=== PATIENT | female | born 1960 ===

== ENCOUNTER 2018-12-01 18:54 | Inpatient (IN) | payer BC ==
[2018-12-01] MEDS ORDERED: Sodium Chloride 0.9% 1,000 ML IV STA (19:32)
[2018-12-01] MEDS ORDERED: Ondansetron 4 MG/2 ML SDV IVPUSH ONE (19:32)
[2018-12-01] MEDS ORDERED: Sodium Chloride 0.9% 10 ML Syringe FLUSH PRN (19:32)
[2018-12-01] MEDS ORDERED: HYDROmorphone 1 MG/ML Syringe IVPUSH ONE ×2 (19:33→21:19)
[2018-12-01] MEDS ORDERED: Iopamidol 612 MG/ML 100 ML Bottle IVPUSH ONE (20:17)
--- NOTE | 2018-12-01 20:48 | EDM.PDOC ---
ED HPI GENERAL MEDICAL PROBLEM - General Chief Complaint: Abdominal Pain Stated Complaint: ABDOMINAL PAIN Time Seen by Provider: 12/01/18 19:07 Source of Information: Reports: Patient, Family History Limitations: Reports: Intoxication - History of Present Illness INITIAL COMMENTS - FREE TEXT/NARRATIVE: The patient presents with her for abdominal pain, nausea and vomiting. This started a few days ago. It got worse today. She has been on klonazopam for years and her doctor Dr Correa is trying to get her off. She has been out for a few days. She also had gastric bypass surgery in the past. She has been drinking more alcohol the past 2 weeks because she is not on the klonazopam. She last drank about an hour before arrival. She has no fever, chills, cough, congestion, chest pain or shortness of breath. Onset: Gradual Duration: Day(s): Location: Reports: Abdomen Quality: Reports: Sharp Severity: Moderate Improves with: Reports: None Worsens with: Reports: None Associated Symptoms: Reports: Nausea/Vomiting. Denies: Chest Pain, Cough, Fever /Chills, Headaches, Shortness of Breath Abdomen Pain Score (Numeric/FACES): 8 - Related Data Allergies Allergy/AdvReac Type Severity Reaction Status Date / Time Sulfa (Sulfonamide Allergy Nausea and Verified 12/01/18 19:34 Antibiotics) Vomiting topiramate [From Topamax] Allergy Other Verified 12/01/18 19:34 Home Meds: Home Meds clonazePAM [Clonazepam] 1.5 mg PO BEDTIME 06/13/18 [History] Past Medical History - Past Health History Medical/Surgical History: Denies Medical/Surgical History Gastrointestinal History: Reports: GERD, Other (See Below) Other Gastrointestinal History: ulcers, bowel obstruction Neurological History: Reports: Migraines - Past Surgical History GI Surgical History: Reports: Bariatric Procedure, Cholecystectomy, Small Bowel , Other (See Below) Other GI Surgeries/Procedures: small bowel resection Female Surgical History: Reports: Hysterectomy Social & Family History - Tobacco Use Smoking Status *Q: Current Every Day Smoker Years of Tobacco use: 35 Packs/Tins Daily: 1 - Caffeine Use Caffeine Use: Reports: None ED ROS GENERAL - Review of Systems Review Of Systems: See Below Constitutional: Reports: No Symptoms HEENT: Reports: No Symptoms Respiratory: Reports: No Symptoms Cardiovascular: Reports: No Symptoms Endocrine: Reports: No Symptoms GI/Abdominal: Reports: Abdominal Pain, Nausea, Vomiting. Denies: Diarrhea : Reports: No Symptoms Musculoskeletal: Reports: No Symptoms Skin: Reports: No Symptoms ED EXAM, GI/ABD - Physical Exam Exam: See Below Exam Limited By: No Limitations General Appearance: Alert, No Apparent Distress Ears: Normal External Exam Nose: Normal Inspection Head: Atraumatic, Normocephalic Neck: Normal Inspection Respiratory/Chest: No Respiratory Distress, Lungs Clear, Normal Breath Sounds Cardiovascular: Regular Rate, Rhythm, No Edema, No Murmur GI/Abdominal Exam: Soft, No Organomegaly, No Mass, Tender (Moderate mid abdominal tenderness) Course - Vital Signs Last Recorded V/S: Last Vital Signs Temp 97.6 F 12/01/18 19:25 Pulse 97 12/01/18 19:25 Resp 16 12/01/18 19:25 BP 155/98 H 12/01/18 19:25 Pulse Ox 98 12/01/18 19:25 - Orders/Labs/Meds Orders: Active Orders 24 hr Category Date Time Status Peripheral IV Care [RC] . DIRECTED Care 12/01/18 19:32 Active Abdomen Pelvis w Cont [CT] Stat Exams 12/01/18 19:32 Taken Sodium Chloride 0.9% [Normal Saline] 1,000 ml Med 12/01/18 21:30 Active IV ASDIRECTED Sodium Chloride 0.9% [Saline Flush] Med 12/01/18 19:32 Active 10 ml FLUSH ASDIRECTED PRN ED Antiemetic Medication Reflex [OM.PC] Stat Oth 12/01/18 19:32 Ordered Peripheral IV Insertion Adult [OM.PC] Stat Oth 12/01/18 19:32 Ordered Medication Orders Sodium Chloride (Normal Saline) 1,000 mls @ 150 mls/hr IV ASDIRECTED YANELY Last Admin: 12/01/18 21:35 Dose: 150 mls/hr Sodium Chloride (Saline Flush) 10 ml FLUSH ASDIRECTED PRN PRN Reason: Keep Vein Open Last Admin: 12/01/18 19:54 Dose: 10 ml Labs: Laboratory Tests 12/01/18 12/01/18 12/01/18 Range/Units 19:20 19:20 19:54 WBC 3.48 L (3.98-10.04) K/mm3 RBC 4.30 (3.98-5.22) M/mm3 Hgb 13.0 (11.2-15.7) gm/L Hct 38.1 (34.1-44.9) % MCV 88.6 (79.4-94.8) fl MCH 30.2 (25.6-32.2) pg MCHC 34.1 (32.2-35.5) g/dl RDW Std Deviation 49.2 H (36.4-46.3) fL Plt Count 302 (182-369) K/mm3 MPV 8.6 L (9.4-12.3) fl Neut % (Auto) 68.9 (34.0-71.1) % Lymph % (Auto) 21.3 (19.3-51.7) % [place] % (Auto) 8.9 (4.7-12.5) % Eos % (Auto) 0.3 L (0.7-5.8) Baso % (Auto) 0.3 (0.1-1.2) % Neut # (Auto) 2.40 (1.56-6.13) K/mm3 Lymph # (Auto) 0.74 L (1.18-3.74) K/mm3 Dent # (Auto) 0.31 (0.24-0.36) K/mm3 Eos # (Auto) 0.01 L (0.04-0.36) K/mm3 Baso # (Auto) 0.01 (0.01-0.08) K/mm3 Sodium 134 L (136-145) mEq/L Potassium 3.8 (3.5-5.1) mEq/L Chloride 100 (98-107) mEq/L Carbon Dioxide 22 (21-32) mEq/L Anion Gap 15.8 H (5-15) BUN 14 (7-18) mg/dL Creatinine 0.8 (0.55-1.02) mg/dL Est Cr Clr Drug Dosing TNP Estimated GFR (MDRD) > 60 (>60) mL/min BUN/Creatinine Ratio 17.5 (14-18) Glucose 134 H (74-106) mg/dL Calcium 8.9 (8.5-10.1) mg/dL Total Bilirubin 0.4 (0.2-1.0) mg/dL AST 214 H (15-37) U/L ALT 91 H (14-59) U/L Alkaline Phosphatase 136 H (46-116) U/L Total Protein 7.2 (6.4-8.2) g/dl Albumin 3.6 (3.4-5.0) g/dl Globulin 3.6 gm/dL Albumin/Globulin Ratio 1.0 (1-2) Lipase 736 H (73-393) U/L Urine Color Yellow (Yellow) Urine Appearance Clear (Clear) Urine pH 5.5 (5.0-8.0) Ur Specific [place] 1.015 (1.005-1.030) Urine Protein Negative (Negative) Urine Glucose (UA) Negative (Negative) Urine Ketones Negative (Negative) Urine Occult Blood Negative (Negative) Urine Nitrite Negative (Negative) Urine Bilirubin Negative (Negative) Urine Urobilinogen 0.2 (0.2-1.0) Ur Leukocyte Esterase Negative (Negative) Urine RBC 0-5 (0-5) /hpf Urine WBC 0-5 (0-5) /hpf Ur Epithelial Cells 0-5 (0-5) /hpf Urine Bacteria Not seen (FEW) /hpf Urine Mucus Not seen (FEW) /hpf Urine Opiates Screen (XAMKPU=077) Ur Buprenorphine Scrn (CUTOFF=10) Ur Oxycodone Screen (LSY9MY=622) Urine Methadone Screen (YEFRRO=582) Ur Propoxyphene Screen (BJLCOS=934) Ur Barbiturates Screen (IWMBJQ=333) Ur Tricyclics Screen (FBEJCR=572) Ur Phencyclidine Scrn (CUTOFF=25) Ur Amphetamine Screen (JJOHBY=571) U Methamphetamines Scrn (RCRLDJ=346) U Benzodiazepines Scrn (IXMMON=030) U Cocaine Metab Screen (ZUVVOE=523) U Marijuana (THC) Screen (CUTOFF=50) Ethyl Alcohol 0.15 (0.00) gm% 12/01/18 Range/Units 19:54 WBC (3.98-10.04) K/mm3 RBC (3.98-5.22) M/mm3 Hgb (11.2-15.7) gm/L Hct (34.1-44.9) % MCV (79.4-94.8) fl MCH (25.6-32.2) pg MCHC (32.2-35.5) g/dl RDW Std Deviation (36.4-46.3) fL Plt Count (182-369) K/mm3 MPV (9.4-12.3) fl Neut % (Auto) (34.0-71.1) % Lymph % (Auto) (19.3-51.7) % Dent % (Auto) (4.7-12.5) % Eos % (Auto) (0.7-5.8) Baso % (Auto) (0.1-1.2) % Neut # (Auto) (1.56-6.13) K/mm3 Lymph # (Auto) (1.18-3.74) K/mm3 Dent # (Auto) (0.24-0.36) K/mm3 Eos # (Auto) (0.04-0.36) K/mm3 Baso # (Auto) (0.01-0.08) K/mm3 Sodium (136-145) mEq/L Potassium (3.5-5.1) mEq/L Chloride (98-107) mEq/L Carbon Dioxide (21-32) mEq/L Anion Gap (5-15) BUN (7-18) mg/dL Creatinine (0.55-1.02) mg/dL Est Cr Clr Drug Dosing Estimated GFR (MDRD) (>60) mL/min BUN/Creatinine Ratio (14-18) Glucose (74-106) mg/dL Calcium (8.5-10.1) mg/dL Total Bilirubin (0.2-1.0) mg/dL AST (15-37) U/L ALT (14-59) U/L Alkaline Phosphatase (46-116) U/L Total Protein (6.4-8.2) g/dl Albumin (3.4-5.0) g/dl Globulin gm/dL Albumin/Globulin Ratio (1-2) Lipase (73-393) U/L Urine Color (Yellow) Urine Appearance (Clear) Urine pH (5.0-8.0) Ur Specific [place] (1.005-1.030) Urine Protein (Negative) Urine Glucose (UA) (Negative) Urine Ketones (Negative) Urine Occult Blood (Negative) Urine Nitrite (Negative) Urine Bilirubin (Negative) Urine Urobilinogen (0.2-1.0) Ur Leukocyte Esterase (Negative) Urine RBC (0-5) /hpf Urine WBC (0-5) /hpf Ur Epithelial Cells (0-5) /hpf Urine Bacteria (FEW) /hpf Urine Mucus (FEW) /hpf Urine Opiates Screen Negative (DTYECQ=682) Ur Buprenorphine Scrn Negative (CUTOFF=10) Ur Oxycodone Screen Negative (MMJ2ZW=687) Urine Methadone Screen Negative (LHSYWQ=858) Ur Propoxyphene Screen Negative (SXSWTB=164) Ur Barbiturates Screen Negative (VDTFWP=384) Ur Tricyclics Screen Negative (CIQITV=378) Ur Phencyclidine Scrn Negative (CUTOFF=25) Ur Amphetamine Screen Negative (MHUQLW=379) U Methamphetamines Scrn Negative (IXCHYG=027) U Benzodiazepines Scrn Negative (VUTISB=405) U Cocaine Metab Screen Negative (CEWDHN=622) U Marijuana (THC) Screen Negative (CUTOFF=50) Ethyl Alcohol (0.00) gm% Meds: Medications Generic Name Dose Route Start Last Admin Trade Name Freq PRN Reason Stop Dose Admin Sodium Chloride 1,000 mls @ 150 mls/hr 12/01/18 21:30 12/01/18 21:35 Normal Saline IV 150 mls/hr ASDIRECTED YANELY Administration Sodium Chloride 10 ml 12/01/18 19:32 12/01/18 19:54 Saline Flush FLUSH 10 ml ASDIRECTED PRN Administration Keep Vein Open Discontinued Medications Generic Name Dose Route Start Last Admin Trade Name Freq PRN Reason Stop Dose Admin Hydromorphone HCl 0.25 mg 12/01/18 19:33 12/01/18 19:53 Dilaudid IVPUSH 12/01/18 19:34 0.25 mg ONETIME ONE Administration Hydromorphone HCl 0.5 mg 12/01/18 21:19 12/01/18 21:34 Dilaudid IVPUSH 12/01/18 21:20 0.5 mg ONETIME ONE Administration Sodium Chloride 1,000 mls @ 1,000 mls/hr 12/01/18 19:32 12/01/18 19:53 Normal Saline IV 12/01/18 20:31 1,000 mls/hr .BOLUS STA Administration Iopamidol 100 ml 12/01/18 20:17 12/01/18 20:24 Isovue-300 (61%) IVPUSH 12/01/18 20:18 100 ml ONETIME ONE Administration Ondansetron HCl 4 mg 12/01/18 19:32 12/01/18 19:54 Zofran IVPUSH 12/01/18 19:33 4 mg ONETIME ONE Administration - Re-Assessments/Exams Free Text/Narrative Re-Assessment/Exam: 12/01/18 20:45 I ordered an IV NS 1L bolus, zofran 4mg IV, dilaudid 0.25mg IV, labs, UA and a CT of her abdomen and pelvis. Her WBC was a little low at 3.48. Her Na was a little low at 134. Her anion gap was elevated at 15.8. Her glucose was elevated at 134. Her AST is elevated at 214. Her ALT was elevated at 91. Her Alk Phos was elevated at 136. Her UA looks good. Her urine drug screen was negative. Her ETOH was elevated at 0.15. I am waiting for her CT. 12/01/18 21:[address] shows edema concentrated around the pancreatic head, the second portion of the duodenum and tucker hepatis region. Considerations would be pancreatic head pancreatitis, duodenitis and or cholangitis Correlate with laboratory values. Her lipase is elevated consistent with pancreatitis and the patient has been drinking heavy the past 2 weeks to compensate for the lack of klonopin. I went to talk to her and she was still having more pain. I gave her more dilaudid and fluids. I feel she may not do well at home. Her and her feel the same. I called Dr Chavez and she agreed to the admission. Departure - Departure Time of Disposition: 21:45 Disposition: Admitted As Inpatient 67 Condition: Poor Clinical Impression: Elevated liver enzymes Pancreatitis Qualifiers: Chronicity: acute Pancreatitis type: alcohol induced Acute pancreatitis complication: no infection or necrosis Qualified Code(s): K85.20 - Alcohol induced acute pancreatitis without necrosis or infection Alcohol intoxication Qualifiers: Complication of substance-induced condition: uncomplicated Qualified Code(s): F10.920 - Alcohol use, unspecified with intoxication, uncomplicated - Discharge Information Referrals: Fawad Palma PA-C [Primary Care Provider] - Forms: ED Department Discharge - My Orders Last 24 Hours: My Active Orders 12/01/18 19:32 Peripheral IV Care [RC] . DIRECTED Abdomen Pelvis w Cont [CT] Stat Sodium Chloride 0.9% [Saline Flush] 10 ml FLUSH ASDIRECTED PRN ED Antiemetic Medication Reflex [OM.PC] Stat Peripheral IV Insertion Adult [OM.PC] Stat 12/01/18 21:30 Sodium Chloride 0.9% [Normal Saline] 1,000 ml IV ASDIRECTED - Assessment/Plan Last 24 Hours: My Active Orders 12/01/18 19:32 Peripheral IV Care [RC] . DIRECTED Abdomen Pelvis w Cont [CT] Stat Sodium Chloride 0.9% [Saline Flush] 10 ml FLUSH ASDIRECTED PRN ED Antiemetic Medication Reflex [OM.PC] Stat Peripheral IV Insertion Adult [OM.PC] Stat 12/01/18 21:30 Sodium Chloride 0.9% [Normal Saline] 1,000 ml IV ASDIRECTED
[2018-12-01] MEDS ORDERED: Sodium Chloride 0.9% 1,000 ML IV SCH ×2 (21:30→22:30)
[2018-12-01] MEDS ORDERED: LORazepam 2 MG/ML SDV IVPUSH PRN (22:16)
[2018-12-01] MEDS ORDERED: Ondansetron 4 MG/2 ML SDV IVPUSH PRN (22:25)
[2018-12-01] MEDS ORDERED: chlordiazePOXIDE 25 MG Cap PO ONE (22:30)
[2018-12-01] MEDS: HYDROmorphone 1 MG/ML Syringe IVPUSH PRN (23:00)
[2018-12-02] MEDS ORDERED: Ondansetron 4 MG/2 ML SDV IVPUSH PRN (00:47)
[2018-12-02] MEDS: HYDROmorphone 1 MG/ML Syringe IVPUSH PRN ×4 (03:49→18:10)
--- NOTE | 2018-12-02 06:20 | CT ---
CT abdomen and pelvis Technique: Multiple axial sections were obtained from above the dome of the diaphragm inferiorly through the pubic symphysis. Intravenous and oral contrast was utilized. Delayed images were obtained through the bladder. Comparison: Previous abdominal and pelvic CT study of 05/31/12. Findings: Small portion of the visualized lung bases show nothing acute. Liver contains no focal abnormality. Spleen appears within normal limits. Small nodule noted within the left adrenal gland measuring approximately 1.9 cm. This nodule is present on previous CT exam. This also appears low in signal on prior MRI study of 09/18/14 on the out of phase image which is felt compatible with incidental adrenal adenoma. Right adrenal gland is unremarkable. Bowel wall thickening is noted within portions of the stomach and duodenum. Previous surgery is noted within the stomach. Inflammatory change and fluid is seen around the head of the pancreas and duodenum with fluid extending into the right renal fascia. Pancreas is otherwise unremarkable. Aorta shows no aneurysm. Gallbladder not seen with certainty. Aorta shows no aneurysm. No retroperitoneal adenopathy or mesenteric abnormalities are seen. No pelvic mass or adenopathy is seen. Delayed images show contrast within the bladder. Bone window settings were reviewed which appear within normal limits for the patient's age. Impression: 1. Inflammatory change and fluid around the head of the pancreas and duodenum extending into the right pararenal fascia. Wall thickening is seen within the stomach and duodenum. Findings most likely represent change from duodenitis although pancreatitis is also within the differential. 2. Nonvisualized gallbladder most likely due to previous cholecystectomy. Please confirm clinically. 3. Other incidental findings as noted above. Diagnostic code #3 Agree with preliminary report issued by [employer] ([facility] preliminary report dictated on 12/01/18, 9:44 PM Central Time) code 2
--- NOTE | 2018-12-02 06:30 | PCM.HP ---
H&P History of Present Illness - General Date of Service: 12/02/18 Admit Problem/Dx: Admission Diagnosis/Problem Admission Diagnosis/Problem Pancreatitis Source of Information: Patient, Old Records, Provider, RN, RN Notes Reviewed History Limitations: Reports: No Limitations - History of Present Illness Initial Comments - Free Text/Narative: Britt Mi is a 58 yo female who presented to our ED yesterday evening with abdominal pain, nausea, and vomiting which has been ongoing for the past few days and is getting worse. She has reportedly been on clonazepam for many years and Dr. Correa is trying to wean her off of it. She has not had any for several days as she is out of it. Due to this she has been drinking more and more alcohol over the past 2 weeks. She reports she was last drinking about a hour prior to ED arrival. She has a history of gastric bypass surgery. She is accompanied by her . She denies any fever, chills, cough, congestion, chest pain, or shortness of breath initially. In the ED temperature is 97.6. Pulse 97. Respirations 16. Blood pressure 155/ 98. Pulse ox 98%. She does complain of some moderate mid abdominal tenderness. Labs are obtained: WBC is low at 3.48. Hemogram 13.0. Hematocrit 30.1. She was normocytic. Postsurgical 302,000. Neutrophils are normal at 68.9. Sodium is 134. Potassium 3.8. Chloride 100. Her monoxide 22. Anion gap was slightly high at 15.8. BUN is 14. Creatinine 0.8. EGFR is greater than 60. Glucose is 134. Bilirubin 0.4. AST is elevated at 214, ALT 91, alkaline phosphatase 136. Protein 7.2. Albumin 3.6. Lipase is high at 736. UA is grossly negative. Urine drug screen is negative. Ethyl Alcohol is 0.15. She was started on normal saline and given Dilaudid for pain as well as Zofran for nausea. CT scan of her elbow in the pelvis with contrast was obtained and interpreted by Dr. Peterson as "1. Inflammatory change of fluid around the head of the pancreas and duodenum extending into the right pararenal fascia. Wall thickening seen within the stomach and duodenum. Findings most likely represent change from duodenitis although pancreatitis is also within the differential. 2. Nonvisualized gallbladder most likely due to previous cholecystectomy. Please confirm clinically. Other incidental findings as noted above. She does report some chest pressure while in the ED to the ED provider. EKG is obtained showing no acute changes and a troponin is ordered and is negative. She carries a history of GERD, ulcers, bowel obstruction, migraines, bariatric procedure, cholecystectomy, small bowel resection, hysterectomy. She is a current daily smoker. Her PCP is Faawd Palma PA-C. She is subsequently admitted to the hospital floor on telemetry. Abdomen Pain Score (Numeric/FACES): 5 - Related Data Allergies/Adverse Reactions: Allergies Allergy/AdvReac Type Severity Reaction Status Date / Time Sulfa (Sulfonamide AdvReac Nausea and Verified 12/02/18 07:11 Antibiotics) Vomiting topiramate [From Topamax] AdvReac Other Verified 12/02/18 07:11 Home Medications: Home Meds clonazePAM [Clonazepam] 1 mg PO BEDTIME 06/13/18 [History] Omeprazole 20 mg PO DAILY 12/02/18 [History] hydrOXYzine pamoate [Hydroxyzine Pamoate] 150 mg PO BEDTIME 12/02/18 [History] Past Medical History - Past Health History Medical/Surgical History: Denies Medical/Surgical History Gastrointestinal History: Reports: Other (See Below) Other Gastrointestinal History: ulcers, bowel obstruction Neurological History: Reports: Migraines Hematologic History: Reports: Anemia Other Hematologic History: Iron infusions - Infectious Disease History Infectious Disease History: Reports: Chicken Pox - Past Surgical History GI Surgical History: Reports: Bariatric Procedure, Cholecystectomy, Hernia, Abdominal, Small Bowel, Other (See Below) Other GI Surgeries/Procedures: small bowel resection, hernia repair Female Surgical History: Reports: Hysterectomy Neurological Surgical History: Reports: Other (See Below) Other Neurological Surgeries/Procedures: Laser surgery Social & Family History - Family History Family Medical History: Noncontributory - Tobacco Use Smoking Status *Q: Current Every Day Smoker Years of Tobacco use: 40 Packs/Tins Daily: 0.5 Second Hand Smoke Exposure: No - Caffeine Use Caffeine Use: Reports: Coffee, Energy Drinks, Soda - Alcohol Use Days Per Week of Alcohol Use: 7 Number of Drinks Per Day: 30 Total Drinks Per Week: 210 Date of Last Drink: 11/30/18 Time of Last Drink: 18:30 - Recreational Drug Use Recreational Drug Use: Yes Drug Use in Last 12 Months: Yes Recreational Drug Type: Reports: Marijuana/Hashish Recreational Drug Use Frequency: Rarely Recreational Drug Last Use: 5 days ago H&P Review of Systems - Review of Systems: Review Of Systems: See Below General: Reports: No Symptoms. Denies: Fever, Chills, Malaise, Weakness, Fatigue HEENT: Reports: No Symptoms. Denies: Headaches, Sore Throat Pulmonary: Reports: No Symptoms. Denies: Shortness of Breath, Wheezing, Pleuritic Chest Pain, Cough, Sputum Cardiovascular: Reports: No Symptoms. Denies: Chest Pain, Palpitations, Dyspnea on Exertion, Edema, Lightheadedness Gastrointestinal: Reports: Abdominal Pain (RUQ>epigastric=LUQ), Diarrhea, Nausea , Vomiting. Denies: Constipation Genitourinary: Reports: No Symptoms. Denies: Pain Musculoskeletal: Reports: No Symptoms Skin: Reports: No Symptoms. Denies: Cyanosis Psychiatric: Reports: No Symptoms. Denies: Confusion Neurological: Reports: No Symptoms Hematologic/Lymphatic: Reports: No Symptoms Immunologic: Reports: No Symptoms Exam - Exam Exam: See Below - Vital Signs Vital Signs: Last Vital Signs Temp 98.2 F 12/02/18 03:50 Pulse 79 12/02/18 03:50 Resp 20 12/02/18 03:50 BP 152/86 H 12/02/18 03:50 Pulse Ox 98 12/02/18 03:50 Weight: 152 lb 3.2 oz - Exam Quality Assessment: DVT Prophylaxis General: Alert, Oriented, Cooperative. No: Mild Distress HEENT: Conjunctiva Clear, EACs Clear, EOMI, Hearing Intact, Mucosa Moist & [place] , Nares Patent, Posterior Pharynx Clear, PERRLA Neck: Supple, Trachea Midline Lungs: Clear to Auscultation, Normal Respiratory Effort Cardiovascular: Regular Rate, Regular Rhythm GI/Abdominal Exam: Normal Bowel Sounds, Soft, No Distention, No Abnormal Bruit, Tender (RUQ>epigastric=LUQ), Other (wound below umbilicus 2/2 prior abdominal surgeries. Non-draining and patient reports no changes to it. ) (Female) Exam: Deferred Rectal (Female) Exam: Deferred Back Exam: Normal Inspection, Full Range of Motion Extremities: Normal Inspection, Normal Range of Motion, Non-Tender, No Pedal Edema, Normal Capillary Refill Peripheral Pulses: 3+: Radial (L), Radial (R), Dorsalis Pedis (L), Dorsalis Pedis (R) Skin: Warm, Dry, Intact Neurological: Cranial Nerves Intact (grossly ) Neuro Extensive - Mental Status: Alert, Oriented x3, Normal Mood/Affect, Normal Cognition - Patient Data Lab Results Last 24 hrs: Laboratory Results - last 24 hr 12/01/18 12/01/18 12/01/18 Range/Units 19:20 19:20 19:54 WBC 3.48 L (3.98-10.04) K/mm3 RBC 4.30 (3.98-5.22) M/mm3 Hgb 13.0 (11.2-15.7) gm/L Hct 38.1 (34.1-44.9) % MCV 88.6 (79.4-94.8) fl MCH 30.2 (25.6-32.2) pg MCHC 34.1 (32.2-35.5) g/dl RDW Std Deviation 49.2 H (36.4-46.3) fL Plt Count 302 (182-369) K/mm3 MPV 8.6 L (9.4-12.3) fl Neut % (Auto) 68.9 (34.0-71.1) % Lymph % (Auto) 21.3 (19.3-51.7) % [place] % (Auto) 8.9 (4.7-12.5) % Eos % (Auto) 0.3 L (0.7-5.8) Baso % (Auto) 0.3 (0.1-1.2) % Neut # (Auto) 2.40 (1.56-6.13) K/mm3 Lymph # (Auto) 0.74 L (1.18-3.74) K/mm3 [place] # (Auto) 0.31 (0.24-0.36) K/mm3 Eos # (Auto) 0.01 L (0.04-0.36) K/mm3 Baso # (Auto) 0.01 (0.01-0.08) K/mm3 Sodium 134 L (136-145) mEq/L Potassium 3.8 (3.5-5.1) mEq/L Chloride 100 (98-107) mEq/L Carbon Dioxide 22 (21-32) mEq/L Anion Gap 15.8 H (5-15) BUN 14 (7-18) mg/dL Creatinine 0.8 (0.55-1.02) mg/dL Est Cr Clr Drug Dosing TNP Estimated GFR (MDRD) > 60 (>60) mL/min BUN/Creatinine Ratio 17.5 (14-18) Glucose 134 H (74-106) mg/dL Calcium 8.9 (8.5-10.1) mg/dL Total Bilirubin 0.4 (0.2-1.0) mg/dL AST 214 H (15-37) U/L ALT 91 H (14-59) U/L Alkaline Phosphatase 136 H (46-116) U/L Troponin I (0.00-0.056) ng/mL Total Protein 7.2 (6.4-8.2) g/dl Albumin 3.6 (3.4-5.0) g/dl Globulin 3.6 gm/dL Albumin/Globulin Ratio 1.0 (1-2) Lipase 736 H (73-393) U/L Urine Color Yellow (Yellow) Urine Appearance Clear (Clear) Urine pH 5.5 (5.0-8.0) Ur Specific [place] 1.015 (1.005-1.030) Urine Protein Negative (Negative) Urine Glucose (UA) Negative (Negative) Urine Ketones Negative (Negative) Urine Occult Blood Negative (Negative) Urine Nitrite Negative (Negative) Urine Bilirubin Negative (Negative) Urine Urobilinogen 0.2 (0.2-1.0) Ur Leukocyte Esterase Negative (Negative) Urine RBC 0-5 (0-5) /hpf Urine WBC 0-5 (0-5) /hpf Ur Epithelial Cells 0-5 (0-5) /hpf Urine Bacteria Not seen (FEW) /hpf Urine Mucus Not seen (FEW) /hpf Urine Opiates Screen (SJYUHT=989) Ur Buprenorphine Scrn (CUTOFF=10) Ur Oxycodone Screen (RIW3CQ=882) Urine Methadone Screen (KHHJHO=144) Ur Propoxyphene Screen (EGXQBS=369) Ur Barbiturates Screen (FXHGUM=493) Ur Tricyclics Screen (FNRVFC=493) Ur Phencyclidine Scrn (CUTOFF=25) Ur Amphetamine Screen (YYNJYX=335) U Methamphetamines Scrn (IESEVS=087) U Benzodiazepines Scrn (BYKQOK=369) U Cocaine Metab Screen (UHVYDF=532) U Marijuana (THC) Screen (CUTOFF=50) Ethyl Alcohol 0.15 (0.00) gm% 12/01/18 12/01/18 Range/Units 19:54 22:05 WBC (3.98-10.04) K/mm3 RBC (3.98-5.22) M/mm3 Hgb (11.2-15.7) gm/L Hct (34.1-44.9) % MCV (79.4-94.8) fl MCH (25.6-32.2) pg MCHC (32.2-35.5) g/dl RDW Std Deviation (36.4-46.3) fL Plt Count (182-369) K/mm3 MPV (9.4-12.3) fl Neut % (Auto) (34.0-71.1) % Lymph % (Auto) (19.3-51.7) % [place] % (Auto) (4.7-12.5) % Eos % (Auto) (0.7-5.8) Baso % (Auto) (0.1-1.2) % Neut # (Auto) (1.56-6.13) K/mm3 Lymph # (Auto) (1.18-3.74) K/mm3 [place] # (Auto) (0.24-0.36) K/mm3 Eos # (Auto) (0.04-0.36) K/mm3 Baso # (Auto) (0.01-0.08) K/mm3 Sodium (136-145) mEq/L Potassium (3.5-5.1) mEq/L Chloride (98-107) mEq/L Carbon Dioxide (21-32) mEq/L Anion Gap (5-15) BUN (7-18) mg/dL Creatinine (0.55-1.02) mg/dL Est Cr Clr Drug Dosing Estimated GFR (MDRD) (>60) mL/min BUN/Creatinine Ratio (14-18) Glucose (74-106) mg/dL Calcium (8.5-10.1) mg/dL Total Bilirubin (0.2-1.0) mg/dL AST (15-37) U/L ALT (14-59) U/L Alkaline Phosphatase (46-116) U/L Troponin I < 0.017 (0.00-0.056) ng/mL Total Protein (6.4-8.2) g/dl Albumin (3.4-5.0) g/dl Globulin gm/dL Albumin/Globulin Ratio (1-2) Lipase (73-393) U/L Urine Color (Yellow) Urine Appearance (Clear) Urine pH (5.0-8.0) Ur Specific [place] (1.005-1.030) Urine Protein (Negative) Urine Glucose (UA) (Negative) Urine Ketones (Negative) Urine Occult Blood (Negative) Urine Nitrite (Negative) Urine Bilirubin (Negative) Urine Urobilinogen (0.2-1.0) Ur Leukocyte Esterase (Negative) Urine RBC (0-5) /hpf Urine WBC (0-5) /hpf Ur Epithelial Cells (0-5) /hpf Urine Bacteria (FEW) /hpf Urine Mucus (FEW) /hpf Urine Opiates Screen Negative (LTOOHF=213) Ur Buprenorphine Scrn Negative (CUTOFF=10) Ur Oxycodone Screen Negative (XHQ9ID=045) Urine Methadone Screen Negative (XNZLWR=254) Ur Propoxyphene Screen Negative (HRDOHC=985) Ur Barbiturates Screen Negative (REZSKX=425) Ur Tricyclics Screen Negative (BOZCNF=584) Ur Phencyclidine Scrn Negative (CUTOFF=25) Ur Amphetamine Screen Negative (FNMTCJ=269) U Methamphetamines Scrn Negative (AUUZVA=537) U Benzodiazepines Scrn Negative (EQVJGU=934) U Cocaine Metab Screen Negative (GPQBPT=919) U Marijuana (THC) Screen Negative (CUTOFF=50) Ethyl Alcohol (0.00) gm% Result Diagrams: 12/01/18 19:20 12/02/18 05:35 - Problem List (1) Pancreatitis SNOMED Code(s): 39193907 ICD Code: K85.90 - ACUTE PANCREATITIS WITHOUT NECROSIS OR INFECTION, UNSP Status: Acute Priority: High Current Visit: Yes Qualifiers: Chronicity: acute Pancreatitis type: alcohol induced Acute pancreatitis complication: no infection or necrosis Qualified Code(s): K85.20 - Alcohol induced acute pancreatitis without necrosis or infection (2) Alcohol intoxication SNOMED Code(s): 39181819 ICD Code: F10.929 - ALCOHOL USE, UNSPECIFIED WITH INTOXICATION, UNSPECIFIED Status: Acute Priority: High Current Visit: Yes Qualifiers: Complication of substance-induced condition: uncomplicated Qualified Code(s ): F10.920 - Alcohol use, unspecified with intoxication, uncomplicated (3) Elevated liver enzymes SNOMED Code(s): 576836416 ICD Code: R74.8 - ABNORMAL LEVELS OF OTHER SERUM ENZYMES Status: Acute Priority: High Current Visit: Yes (4) Tobacco use disorder SNOMED Code(s): 193209707 ICD Code: F17.200 - NICOTINE DEPENDENCE, UNSPECIFIED, UNCOMPLICATED Status : Chronic Priority: Medium Current Visit: Yes (5) Hypomagnesemia SNOMED Code(s): 363746359 ICD Code: E83.42 - HYPOMAGNESEMIA Status: Acute Priority: High Current Visit: Yes Problem List Initiated/Reviewed/Updated: Yes Orders Last 24hrs: Active Orders 24 hr Category Date Time Status Patient Status [ADT] Routine ADT 12/01/18 21:46 Active Bedrest Bathroom Privileges [RC] BID Care 12/02/18 00:48 Active CIWAA Assessment [RC] Q4HR Care 12/01/18 22:14 Active NPO [Nothing Per Oral Diet] [DIET] Diet 12/02/18 Breakfast Active BMP [BASIC METABOLIC PANEL,BMP] [CHEM] Routine Lab 12/02/18 05:35 Received MAGNESIUM [CHEM] Routine Lab 12/02/18 05:35 Received HYDROmorphone [Dilaudid] Med 12/01/18 22:23 Active 0.5 mg IVPUSH Q4H PRN LORazepam [Ativan] Med 12/01/18 22:16 Active 1 - 3 mg IVPUSH Q4H PRN Ondansetron [Zofran] Med 12/02/18 00:47 Active 4 mg IVPUSH Q6H PRN Sodium Chloride 0.9% [Normal Saline] 1,000 ml Med 12/01/18 22:30 Active IV ASDIRECTED Sodium Chloride 0.9% [Saline Flush] Med 12/01/18 19:32 Active 10 ml FLUSH ASDIRECTED PRN ED Antiemetic Medication Reflex [OM.PC] Stat Oth 12/01/18 19:32 Ordered Peripheral IV Insertion Adult [OM.PC] Stat Oth 12/01/18 19:32 Ordered Resuscitation Status Routine Resus Stat 12/02/18 00:47 Ordered EKG 12 Lead [EK] Routine Ther 12/01/18 21:55 Ordered Medication Orders Hydromorphone HCl (Dilaudid) 0.5 mg IVPUSH Q4H PRN PRN Reason: pain Last Admin: 12/02/18 03:49 Dose: 0.5 mg Admin: 12/01/18 23:00 Dose: 0.5 mg Sodium Chloride (Normal Saline) 1,000 mls @ 100 mls/hr IV ASDIRECTED YANELY Lorazepam (Ativan) 1 - 3 mg IVPUSH Q4H PRN; Protocol PRN Reason: Withdrawal Symptoms Ondansetron HCl (Zofran) 4 mg IVPUSH Q6H PRN PRN Reason: Nausea Sodium Chloride (Saline Flush) 10 ml FLUSH ASDIRECTED PRN PRN Reason: Keep Vein Open Last Admin: 12/01/18 19:54 Dose: 10 ml Assessment/Plan Comment:: I/P: Acute: Pancreatitis -Has reported worsening abdominal pain, nausea, and vomiting for several days -Hx/o cholecystectomy and gastric bypass -Abdominal/Pelvis CT 12/01/18: * 1. Inflammatory change and fluid around the head of the pancreas and duodenum extending into the right pararenal fascia. Wall thickening is seen within the stomach and duodenum. Findings most likely represent changes from duodenitis although pancreatitis is also within the differential. * 2. Nonvisualized gallbladder most likely due to previous cholecystectomy. Please confirm clinically. * 3. Other incidental findings as noted. -Lipase 736-->1001 -No leukocytosis or clinical signs of infectious process -CRP <0.2 -IV fluids as ordered -NPO for now -Abdominal ultrasound pending -Dr. Saunders, surgery consult ETOH abuse -Has reportedly been drinking heavy for past 2 weeks -Dr. Correa has been trying to wean her off clonazepam and she started drinking ETOH instead -Story on how much she drinks has changed multiple times -UDS negative in ED -Ethyl alochol 0.15 in ED -Multivitamin/Folic acid/Thiamine -Librium as ordered -Consult psychiatry and substance abuse counselor -OSCAR protocol -PRN Ativan for seizures Transaminitis -Suspect 2/2 above -AST 214 -ALT 91 -Alk Phos 136 -IV fluids as ordered -Monitor Tobacco use disorder -Reportedly vapes and smokes -Story has been changing on how much she actually consumes -Nicotine patch -Cessation counseling Hypomagnesemia -Magnesium 1.6 -Supplement Chronic: GERD - Pepcid ordered Hx/o bowel obstruction migraines Hx/o bariatric procedure Hx/o Cholecystectomy Hx/o Small bowel resection Plan: Admit to medical floor on telemetry Other orders as indicated above Home medications as ordered Routine AM labs DVT/PE prophylaxis: SCDs She is usually ambulatory so will hold off PT/OT for now Code status: Full code; PCP: Fawad Palma PA-C
[2018-12-02] MEDS ORDERED: Acetaminophen 325 MG Tab PO PRN (06:42)
[2018-12-02] MEDS ORDERED: LORazepam 2 MG/ML SDV IVPUSH PRN ×2 (06:45→06:46)
[2018-12-02] MEDS ORDERED: Metoprolol Tartrate 5 MG/5 ML SDV IVPUSH PRN (06:45)
[2018-12-02] MEDS ORDERED: hydrALAZINE 20 MG/ML SDV IVPUSH PRN (06:45)
[2018-12-02] MEDS ORDERED: Magnesium Sulfate/Water 2 GM in Premix Bag 1 BAG IV ONE (07:29)
[2018-12-02] MEDS ORDERED: Sodium Chloride 0.9% 1,000 ML IV SCH (07:45)
[2018-12-02] MEDS: Famotidine 20 MG/2 ML SDV IVPUSH SCH ×2 (08:30→20:34)
[2018-12-02] MEDS: Multivitamins,Therapeutic Tab PO SCH (08:31)
[2018-12-02] MEDS: Nicotine 21 MG/24 Hr Patch TRDERM SCH (08:32)
[2018-12-02] MEDS: Folic Acid 50 MG/10 ML MDV IV SCH (08:36)
[2018-12-02] MEDS ORDERED: Thiamine 100 MG in Sodium Chloride 0.9% 100 ML IV ONE (09:00)
[2018-12-02] MEDS ORDERED: Thiamine 200 MG/2 ML MDV IVPUSH ONE (09:00)
[2018-12-02] MEDS ORDERED: Thiamine 100 MG Tab PO SCH (09:00)
[2018-12-02] MEDS ORDERED: Folic Acid 1 MG Tab PO SCH (09:00)
--- NOTE | 2018-12-02 09:42 | US ---
Limited abdominal ultrasound: Multiple real-time images of the upper right abdomen were obtained. Comparison: Prior abdominal and pelvic CT exam of 12/01/18. Findings: Liver shows no focal parenchymal abnormality. Proximal aorta shows no aneurysm. Common bile duct is mildly dilated at 9 mm. No gallbladder is seen. Small amount of free fluid is seen in the region of the tucker hepatis and within Morison's pouch. Right kidney shows no hydronephrosis or mass. Right kidney has a length of 12.7 cm. Pancreas is incompletely seen. Visualized portions of the pancreas show no discrete abnormality. Impression: 1. Gallbladder not seen presumably from previous cholecystectomy. 2. Common bile duct mildly dilated at 9 mm possibly due to change from previous cholecystectomy. 3. Small amount of free fluid within the abdomen as described above. 4. No additional abnormality is appreciated on right upper quadrant abdominal ultrasound. Diagnostic code #3
[2018-12-02] MEDS ORDERED: chlordiazePOXIDE 25 MG Cap PO ONE (10:30)
[2018-12-02] MEDS: Dextrose 5%-0.9% NaCl 1,000 ML IV SCH ×4 (10:38→23:24)
[2018-12-02] MEDS: Ondansetron 4 MG Tab.DIS PO PRN ×2 (12:13→20:37)
[2018-12-02] MEDS: chlordiazePOXIDE 25 MG Cap PO SCH ×2 (14:52→20:33)
[2018-12-02] MEDS: Loperamide 2 MG Cap PO PRN (18:10)
--- NOTE | 2018-12-02 20:14 | CONS ---
CONSULTING PHYSICIAN: Enoc Thompson LAC DATE OF CONSULTATION: 12/02/2018 TIME: 7:29 p.m. IDENTIFICATION: The patient is a 58-year-old female, who was admitted to [facility] ICU on 12/01/2018 with pancreatitis and a LUCI 0.15. An alcohol and drug consultation was requested by her medical treatment team. An alcohol and drug consultation was attempted on 12/02/2018. However, the patient immediately refused to participate in the evaluation subsequent to our introduction. The patient reported that she did not think an evaluation was necessary and stated "Dr. Garnica prescribed me my clonazepam and that is all I need." An attempt was made to talk with the patient about alternative treatments for insomnia that did not require medication as the patient reported that she was taking clonazepam for insomnia. However, the patient verbalized that she had already tried everything and found out what she needed "clonazepam." The patient then stated "I either have clonazepam or I ." An attempt was made to clarify the meaning of her statement, however, the patient dismissed this conversation. We talked briefly about her decision to drink in lieu of not having clonazepam, and the patient reported that she was well aware that she was drinking to replace clonazepam. The patient was educated about using sedatives and the alcohol in combination as her prescription drug monitoring report indicates she may be using clonazepam in combination with opiates as well as presenting with a LUCI 0.15. The patient was politely unreceptive. The patient was asked again if she wanted to participate in an alcohol and drug evaluation, and she stated "no, thanks for stopping by." Dr. 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 Dr. Nahun MD, did authorize a prescription for clonazepam, and the patient was given the dose. However, caution should be taken to reduce or discontinue this patient's use of sedative hypnotics or anxiolytics. The patient may need medical assistance to reduce to continuation her use of clonazepam compound being her substance use. The patient reports that she also uses cannabis, is a daily pack-a-day smoker. Uses opiates according to her prescription drug monitoring report and drinks alcohol. A 24-hour hold was discussed with Dr. Chavez in the event the patient would become unreasonable if the prescription for clonazepam was not continued for her as a prescription drug monitoring report indicates that the patient has been flagged for having 5 opiate or sedative providers in the past 2 years. At this time, the patient is adamantly refusing to participate in alcohol and drug evaluation. Without the patient's consent and cooperation, we are unable to assist this patient with any intervention strategy during her hospital stay. The patient's autonomy will be respected. The patient's primary physicians will be contacted regarding their consideration for reducing to discontinuation of clonazepam. TAMMI /[id number]
[2018-12-02] MEDS: ClonazePAM 1 MG Tab PO SCH (20:33)
[2018-12-02] MEDS: Ketorolac 30 MG/ML SDV IVPUSH PRN (20:34)
[2018-12-03] MEDS: HYDROmorphone 1 MG/ML Syringe IVPUSH PRN ×4 (00:10→17:51)
[2018-12-03] MEDS: Dextrose 5%-0.9% NaCl 1,000 ML IV SCH ×2 (03:26→07:31)
[2018-12-03] MEDS: Loperamide 2 MG Cap PO PRN ×2 (04:42→15:53)
[2018-12-03] MEDS ORDERED: Magnesium Sulfate/Water 4 GM in Premix Bag 1 BAG IV ONE (08:07)
[2018-12-03] MEDS: Ketorolac 30 MG/ML SDV IVPUSH PRN ×2 (08:19→20:46)
[2018-12-03] MEDS: Famotidine 20 MG/2 ML SDV IVPUSH SCH (08:21)
[2018-12-03] MEDS: Folic Acid 50 MG/10 ML MDV IV SCH (08:27)
[2018-12-03] MEDS: chlordiazePOXIDE 25 MG Cap PO SCH (08:29)
[2018-12-03] MEDS: Multivitamins,Therapeutic Tab PO SCH (08:29)
[2018-12-03] MEDS: Nicotine 21 MG/24 Hr Patch TRDERM SCH (08:30)
[2018-12-03] MEDS: Potassium Chloride 10 MEQ in Premix Bag 1 BAG IV SCH ×4 (08:30→11:40)
[2018-12-03] MEDS ORDERED: Thiamine 200 MG/2 ML MDV IVPUSH SCH (09:00)
[2018-12-03] MEDS ORDERED: Thiamine 100 MG in Sodium Chloride 0.9% 100 ML IV SCH (09:00)
--- NOTE | 2018-12-03 10:30 | CONS ---
CONSULTING PHYSICIAN: Robles Garnica MD DATE OF CONSULTATION: 12/02/2018 Psychiatric Evaluation This is a 60-minute inpatient telemedicine event. Site where the services are provided is [facility] in [place], [place]. Site where the service is provided from, our offices in [facility]. Length of service for this 60-minute inpatient telemedicine event is 60 minutes. IDENTIFICATION: The patient is a 58-year-old female who is admitted to the MICU at [facility] in [place], [place], on 12/01/2018. She is seen for psychiatric evaluation per request of the inpatient attending, Dr. Chavez, and her treatment team. CHIEF COMPLAINT: "What I need is 2 mg of Klonopin every night to help me sleep." HISTORY OF PRESENT ILLNESS: The patient is a 58-year-old female who reports that she has been prescribed 2 mg of Klonopin for the past 14 years to help her sleep. She states that she was receiving this first from nurse practitioner and then from primary outpatient MD, but both of these providers have eventually retired and moved away, and she began to see a local psychiatrist about a year and a half ago. At that time, the patient states that provider initially kept her on the 2 mg of Klonopin, but then about a year ago, "she decided that we needed to try something different and ever since then, it has just been one problem after another." She goes on to note "it all started when she began messing with my Klonopin." Evidently, the patient went to [facility] to visit her son, who is in the [place], at the beginning of this year, and she started taking 2 mg of Klonopin even though the provider had backed it down to 1 mg. The patient states that she had gone down gradually from 2 to 1.75 to 1.5 and at 1.5, she began having problems with sleep, and she states she gets very upset, very nervous and agitated when she cannot get sleep. She states she had problems both falling asleep and staying asleep as the Klonopin was decreased. She states, when she went on the trip to [facility], she started using the 2 mg "and then I ran out early." When she came back from [facility], the doctor was refusing to fill the Klonopin early and so the patient stated "I am not going to go without sleep, I just can't," and she states that she started drinking quite heavily, which "I never do." But in this instance, she felt she needed to because she could not get sleep. She states she went on a 2-week drinking binge, where she was drinking up to 50 beers a day. Eventually, she had drank so much that she had to come into the hospital now because she was having acute episode of pancreatitis. She states that she had lost track of the time, the days, and all she was doing was trying to make sure she got enough sleep. She states "the only time I ever drink is when I don't have my Klonopin" and goes on to note her other psychiatrist, "if she had just stopped with her work, that would have been fine." She states that she just wants to be back on her Klonopin. She denies any problems with illicit substance use or excessive alcohol use, except in this instance when it just got out of hand because the patient was so neuro-tracked about being able to get sleep. She denies any symptoms of depression or anxiety. She denies that she is suicidal or homicidal. She denies any psychotic, delusional, or paranoid symptoms. MEDICATIONS: At the time of presentation; 1. Vistaril prior to coming in. 2. The patient was also getting Klonopin 1 mg at bedtime, but had run out of this medication. 3. Since being in the hospital, the patient is on Librium 25 mg t.i.d. 4. Dilaudid 0.5 mg q.i.d. for pain. 5. Ativan per CIWA protocol. ALLERGIES: 1. Sulfa, which the patient says gives her intolerance. 2. Topiramate, which she had a really bad reaction, but she does not remember what it was. 3. Motrin, which caused ulcers. 4. Tylenol, which caused liver problems. PAST MEDICAL HISTORY: 1. Pancreatitis. 2. Status post gastric bypass in the past with a 100-pound weight loss. 3. History of migraines. 4. Status post small bowel resection secondary to Crohn's many years ago. REVIEW OF SYSTEMS: Aside from GI and neuro, all other major organ systems are negative at this point in time for acute difficulties or complications. FAMILY PSYCHIATRIC AND CD HISTORY: The patient denies. PAST PSYCHIATRIC AND CD HISTORY: The patient denies any previous psychiatric hospitalizations or chemical dependency treatments. Denies any previous suicide attempts, self-injurious behaviors, or eating disorders. Her outpatient primary psychiatrist is Dr. Correa at [facility]. Past psychiatric medication history besides Klonopin includes Topamax, trazodone, and Seroquel. Primary outpatient nurse practitioner is Caitie Tolentino. SOCIAL HISTORY: The patient was born and raised in [place], [place]. She is the oldest of 3 siblings and 2 sisters. The patient's parents when the patient was 12 years of age. She stayed with her father after the divorce. Father was a rancher and mother was a homemaker. The patient's highest level of education is 2 years of college. 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 The patient has been x1 for 36 years. She has 3 children from that union. Her works out in the [employer] as a quality assurance coordinator. The patient lives with her in [place], [place]. She denies any prior service or any current legal difficulties. She is L[employer] in terms of her candy formation. She enjoys riding horse, reading, and home worship. MENTAL STATUS EXAM: The patient is a 58-year-old white female, in no apparent distress. Speech is of regular rate and rhythm. The patient is cognitively oriented. Psychomotor activity is within normal limits. There are no abnormal motor movements or tics observed. Gait is not observed nor is station as the patient is sitting on the side of the bed for the purposes of the inpatient telemedicine event. Mood is frustrated. Affect is cooperative overall for the purposes of the inpatient consult. There are no behavioral or stated evidence of acute suicidal or homicidal ideation or acute psychotic, delusional, or paranoid symptoms. Thought processes are organized. There are no manic symptoms or loose associations evident. Judgment and insight appear unimpaired at this point in time. Motivation for help appears fair to good. VITAL SIGNS: 5 feet 6 inches tall, 150 pounds, 150/86, 81, 17, and 98.5 degrees. IMPRESSION: 1. [place] I: a. Anxiety, F41.9. b. Insomnia. c. Alcohol abuse. d. Rule out alcohol dependence. 2. [place] II: None. 3. [place] III: a. Pancreatitis. b. Status post gastric bypass. c. History of migraines. d. Status post bowel resection secondary to Crohn disease many years ago. 4. [place] IV: Severe. 5. [place] V: 60. PLAN: 1. Begin or restart Klonopin 2 mg at bedtime to help the patient with sleep initiation and maintenance, as well as anxiety reduction. 2. Sobriety. 3. CD assessment while the patient is on the unit, to assess whether this was indeed a one-time issue, if there is a deeper underlying problem in regard to the patient's excessive alcohol use for the 2 weeks prior to admission. 4. I explained the patient that the Klonopin would be prescribed while she is on the inpatient MICU to help her with sleep initiation, maintenance, and anxiety reduction, but this medication will likely have to be continued on the outside by an outpatient care provider, and she acknowledged her understanding of these facts. 5. Ativan per [facility] protocol. 6. Folic acid supplementation. 7. Thiamine supplementation. 8. Continue Librium 25 mg t.i.d., as currently prescribed, to help minimize any symptoms of withdrawal. 9. We will continue to follow up with the patient on an as-needed basis while she remains on the inpatient MICU. 10.We will follow up with the patient sooner if any complications in the interim. 11.Pastoral guidance. 12.I also explained to the patient that if she is not being forthcoming with her story or if she is using illicit substances or alcohol excessively while this Klonopin is being prescribed, then no further Klonopin will be made available for the patient going forward whether she is on the inpatient unit or back out in the community from this provider or this treatment team, and she also acknowledged her understanding of these facts. 13.Crisis plan is in place. TAMMI /[id number]
--- NOTE | 2018-12-03 10:53 | PCM.PN ---
- General Info Date of Service: 12/03/18 Admission Dx/Problem (Free Text): Admission Diagnosis/Problem Admission Diagnosis/Problem Pancreatitis Subjective Update: Follow Up Functional Status: Reports: Pain Controlled, Tolerating Diet, Ambulating, Urinating - Review of Systems General: Denies: Fever, Weakness, Fatigue, Chills HEENT: Reports: No Symptoms Pulmonary: Denies: Shortness of Breath Cardiovascular: Denies: Chest Pain, Dyspnea on Exertion, Lightheadedness Gastrointestinal: Reports: Abdominal Pain, Flatus. Denies: Decreased Appetite, Diarrhea, Difficulty Swallowing, Nausea, Vomiting Genitourinary: Reports: No Symptoms Musculoskeletal: Reports: Back Pain Skin: Denies: Mottled, Pallor, Diaphoresis, Bruising, Rash Neurological: Denies: Confusion, Dizziness, Headache, Difficulty Walking, Weakness, Gait Disturbance Psychiatric: Denies: Depression, Anxiety, Agitation, Hallucinations Systems Review Comment:: No overnight issues. She rested well. However her pain dose not seems to be controlled. She currently has 6/10 on low dose IV dilaudid and toradol. Her e- lytes were still abnormal. Her liver enzymes continues to go up but her lipase is trending down. She expressed concerns over too many people coming in to speak with her and yet nobody really told her what's going on until I came in during rounds this morning. - Patient Data Vitals - Most Recent: Last Vital Signs Temp 36.9 C 12/03/18 08:00 Pulse 91 12/03/18 08:00 Resp 16 12/03/18 08:00 BP 134/75 12/03/18 08:00 Pulse Ox 96 12/03/18 08:00 Weight - Most Recent: 73.482 kg I&O - Last 24 Hours: Intake & Output 12/02/18 12/03/18 12/03/18 22:59 06:59 14:59 Intake Total 2558 2692 Output Total 800 1850 Balance 1758 842 Lab Results Last 24 Hours: Laboratory Results - last 24 hr 12/02/18 12/02/18 12/02/18 Range/Units 12:26 18:15 18:25 WBC (3.98-10.04) K/mm3 RBC (3.98-5.22) M/mm3 Hgb (11.2-15.7) gm/L Hct (34.1-44.9) % MCV (79.4-94.8) fl MCH (25.6-32.2) pg MCHC (32.2-35.5) g/dl RDW Std Deviation (36.4-46.3) fL Plt Count (182-369) K/mm3 MPV (9.4-12.3) fl Neut % (Auto) (34.0-71.1) % Lymph % (Auto) (19.3-51.7) % [place] % (Auto) (4.7-12.5) % Eos % (Auto) (0.7-5.8) Baso % (Auto) (0.1-1.2) % Neut # (Auto) (1.56-6.13) K/mm3 Lymph # (Auto) (1.18-3.74) K/mm3 [place] # (Auto) (0.24-0.36) K/mm3 Eos # (Auto) (0.04-0.36) K/mm3 Baso # (Auto) (0.01-0.08) K/mm3 Sodium (136-145) mEq/L Potassium (3.5-5.1) mEq/L Chloride (98-107) mEq/L Carbon Dioxide (21-32) mEq/L Anion Gap (5-15) BUN (7-18) mg/dL Creatinine (0.55-1.02) mg/dL Est Cr Clr Drug Dosing mL/min Estimated GFR (MDRD) (>60) mL/min BUN/Creatinine Ratio (14-18) Glucose (74-106) mg/dL POC Glucose 109 H 121 H (70-105) mg/dL Calcium (8.5-10.1) mg/dL Magnesium (1.8-2.4) mg/dl Total Bilirubin (0.2-1.0) mg/dL AST (15-37) U/L ALT (14-59) U/L Alkaline Phosphatase (46-116) U/L C-Reactive Protein (<1.0) mg/dL Total Protein (6.4-8.2) g/dl Albumin (3.4-5.0) g/dl Globulin gm/dL Albumin/Globulin Ratio (1-2) Lipase 880 H (73-393) U/L 01/12/03/18 12/03/18 Range/Units 00:44 06:10 06:10 WBC 5.17 (3.98-10.04) K/mm3 RBC 3.29 L (3.98-5.22) M/mm3 Hgb 10.1 L (11.2-15.7) gm/L Hct 30.4 L (34.1-44.9) % MCV 92.4 (79.4-94.8) fl MCH 30.7 (25.6-32.2) pg MCHC 33.2 (32.2-35.5) g/dl RDW Std Deviation 50.5 H (36.4-46.3) fL Plt Count 185 (182-369) K/mm3 MPV 8.7 L (9.4-12.3) fl Neut % (Auto) 78.9 H (34.0-71.1) % Lymph % (Auto) 16.4 L (19.3-51.7) % [place] % (Auto) 3.9 L (4.7-12.5) % Eos % (Auto) 0.6 L (0.7-5.8) Baso % (Auto) 0.2 (0.1-1.2) % Neut # (Auto) 4.08 (1.56-6.13) K/mm3 Lymph # (Auto) 0.85 L (1.18-3.74) K/mm3 [place] # (Auto) 0.20 L (0.24-0.36) K/mm3 Eos # (Auto) 0.03 L (0.04-0.36) K/mm3 Baso # (Auto) 0.01 (0.01-0.08) K/mm3 Sodium 137 (136-145) mEq/L Potassium 3.4 L (3.5-5.1) mEq/L Chloride 107 (98-107) mEq/L Carbon Dioxide 22 (21-32) mEq/L Anion Gap 11.4 (5-15) BUN 6 L (7-18) mg/dL Creatinine 0.7 (0.55-1.02) mg/dL Est Cr Clr Drug Dosing 83.01 mL/min Estimated GFR (MDRD) > 60 (>60) mL/min BUN/Creatinine Ratio 8.6 L (14-18) Glucose 119 H (74-106) mg/dL POC Glucose 135 H (70-105) mg/dL Calcium 8.1 L (8.5-10.1) mg/dL Magnesium 1.7 L (1.8-2.4) mg/dl Total Bilirubin 0.9 (0.2-1.0) mg/dL AST 467 H (15-37) U/L ALT 155 H (14-59) U/L Alkaline Phosphatase 381 H (46-116) U/L C-Reactive Protein 2.5 H* (<1.0) mg/dL Total Protein 5.6 L (6.4-8.2) g/dl Albumin 2.7 L (3.4-5.0) g/dl Globulin 2.9 gm/dL Albumin/Globulin Ratio 0.9 L (1-2) Lipase 713 H (73-393) U/L Med Orders - Current: Current Medications Acetaminophen (Tylenol) 650 mg PO Q4H PRN PRN Reason: Pain (Mild 1-3)/fever Chlordiazepoxide HCl (Librium) 25 mg PO TID [facility] Last Admin: 12/03/18 08:29 Dose: 25 mg Clonazepam (Klonopin) 2 mg PO BEDTIME [facility] Last Admin: 12/02/18 20:33 Dose: 2 mg Famotidine (Pepcid) 20 mg IVPUSH BID [facility] Last Admin: 12/03/18 08:21 Dose: 20 mg Folic Acid (Folic Acid) 1 mg IV DAILY [facility] Last Admin: 12/03/18 08:27 Dose: 1 mg Hydralazine HCl (Apresoline) 20 mg IVPUSH Q4H PRN PRN Reason: Hypertension Hydromorphone HCl (Dilaudid) 0.5 mg IVPUSH Q6H PRN PRN Reason: pain Last Admin: 12/03/18 06:02 Dose: 0.5 mg Sodium Chloride (Normal Saline) 1,000 mls @ 250 mls/hr IV ASDIRECTED [facility] Dextrose/Sodium Chloride (Dextrose 5%-Normal Saline) 1,000 mls @ 250 mls/hr IV ASDIRECTED [facility] Last Admin: 12/03/18 07:31 Dose: 250 mls/hr Potassium Chloride 10 meq/ (Premix) 100 mls @ 100 mls/hr IV Q1H [facility] Stop: 12/03/18 12:14 Last Admin: 12/03/18 10:41 Dose: 100 mls/hr Ketorolac Tromethamine (Toradol) 30 mg IVPUSH Q8H PRN PRN Reason: Pain (moderate 4-6) Stop: 12/07/18 20:01 Last Admin: 12/03/18 08:19 Dose: 30 mg Loperamide HCl (Imodium) 2 mg PO Q6H PRN PRN Reason: Diarrhea Last Admin: 12/03/18 04:42 Dose: 2 mg Lorazepam (Ativan) 2 mg IVPUSH Q4H PRN PRN Reason: Seizures Lorazepam (Ativan) 0 mg IVPUSH Q4H PRN; Protocol PRN Reason: withdrawl Metoprolol Tartrate (Lopressor) 5 mg IVPUSH Q4H PRN PRN Reason: Tachycardia Miscellaneous Information (Remove Patch) 1 ea TRDERM DAILY [facility] Last Admin: 12/03/18 09:38 Dose: Not Given Multivitamins (Thera) 1 each PO DAILY [facility] Last Admin: 12/03/18 08:29 Dose: 1 each Nicotine (Habitrol) 21 mg TRDERM DAILY [facility] Last Admin: 12/03/18 08:30 Dose: Not Given Ondansetron HCl (Zofran) 4 mg IVPUSH Q6H PRN PRN Reason: Nausea Ondansetron HCl (Zofran Odt) 4 mg PO Q6H PRN PRN Reason: nausea, able to take PO Last Admin: 12/02/18 20:37 Dose: 4 mg Sodium Chloride (Saline Flush) 10 ml FLUSH ASDIRECTED PRN PRN Reason: Keep Vein Open Last Admin: 12/01/18 19:54 Dose: 10 ml Thiamine HCl (Vitamin B-1) 100 mg IVPUSH DAILY [facility] Last Admin: 12/03/18 08:20 Dose: 100 mg Discontinued Medications Chlordiazepoxide HCl (Librium) 25 mg PO ONETIME ONE Stop: 12/01/18 22:31 Last Admin: 12/01/18 23:07 Dose: 25 mg Chlordiazepoxide HCl (Librium) 25 mg PO ONETIME ONE Stop: 12/02/18 10:31 Last Admin: 12/02/18 10:36 Dose: 25 mg Folic Acid (Folic Acid) 1 mg PO DAILY [facility] Hydromorphone HCl (Dilaudid) 0.25 mg IVPUSH ONETIME ONE Stop: 12/01/18 19:34 Last Admin: 12/01/18 19:53 Dose: 0.25 mg Hydromorphone HCl (Dilaudid) 0.5 mg IVPUSH ONETIME ONE Stop: 12/01/18 21:20 Last Admin: 12/01/18 21:34 Dose: 0.5 mg Hydromorphone HCl (Dilaudid) 0.5 mg IVPUSH Q4H PRN PRN Reason: pain Last Admin: 12/02/18 12:14 Dose: 0.5 mg Sodium Chloride (Normal Saline) 1,000 mls @ 1,000 mls/hr IV .BOLUS STA Stop: 12/01/18 20:31 Last Admin: 12/01/18 19:53 Dose: 1,000 mls/hr Sodium Chloride (Normal Saline) 1,000 mls @ 150 mls/hr IV ASDIRECTED [facility] Last Admin: 12/01/18 21:35 Dose: 150 mls/hr Sodium Chloride (Normal Saline) 1,000 mls @ 100 mls/hr IV ASDIRECTED [facility] Last Admin: 12/02/18 07:08 Dose: 100 mls/hr Magnesium Sulfate 2 gm/ Premix 50 mls @ 25 mls/hr IV ONETIME ONE Stop: 12/02/18 09:28 Last Admin: 12/02/18 07:57 Dose: 25 mls/hr Thiamine HCl 100 mg/ Sodium (Chloride) 101 mls @ 202 mls/hr IV ONETIME ONE Stop: 12/02/18 09:01 Thiamine HCl 100 mg/ Sodium (Chloride) 101 mls @ 202 mls/hr IV DAILY [facility] Magnesium Sulfate 4 gm/ Premix 100 mls @ 25 mls/hr IV ONETIME ONE Stop: 12/03/18 08:08 Last Admin: 12/03/18 08:30 Dose: 25 mls/hr Iopamidol (Isovue-300 (61%)) 100 ml IVPUSH ONETIME ONE Stop: 12/01/18 20:18 Last Admin: 12/01/18 20:24 Dose: 100 ml Lorazepam (Ativan) 1 - 3 mg IVPUSH Q4H PRN; Protocol PRN Reason: Withdrawal Symptoms Ondansetron HCl (Zofran) 4 mg IVPUSH ONETIME ONE Stop: 12/01/18 19:33 Last Admin: 12/01/18 19:54 Dose: 4 mg Ondansetron HCl (Zofran) 4 mg IVPUSH Q4H PRN PRN Reason: Nausea Thiamine HCl (Vitamin B-1) 100 mg PO DAILY [facility] Thiamine HCl (Vitamin B-1) 100 mg IVPUSH ONETIME ONE Stop: 12/02/18 09:01 Last Admin: 12/02/18 08:31 Dose: 100 mg - Exam General: Alert, Oriented, Cooperative HEENT: Pupils Equal, Pupils Reactive, EOMI, Mucous Membr. Moist/[place] Neck: Supple Lungs: Clear to Auscultation, Normal Respiratory Effort Cardiovascular: Regular Rate, Regular Rhythm GI/Abdominal Exam: Normal Bowel Sounds, Soft, No Organomegaly, No Distention, No Abnormal Bruit, No Mass, Tender (right lower quadrant), Other (midline abdominal scar). No: Guarding, Rigid, Rebound (Female) Exam: Deferred Back Exam: Normal Inspection, Decreased Range of Motion Extremities: Normal Inspection, Normal Range of Motion, Non-Tender, No Pedal Edema, Normal Capillary Refill Skin: Warm, Dry, Intact Neurological: No New Focal Deficit Psy/Mental Status: Alert, Normal Affect, Normal Mood. No: Withdrawal Symptoms - Problem List Review Problem List Initiated/Reviewed/Updated: Yes - Plan Plan:: I/P: Acute: Pancreatitis, Improving -Has reported worsening abdominal pain, nausea, and vomiting for several days -Hx/o cholecystectomy and gastric bypass -Abdominal/Pelvis CT 12/01/18: * 1. Inflammatory change and fluid around the head of the pancreas and duodenum extending into the right pararenal fascia. Wall thickening is seen within the stomach and duodenum. Findings most likely represent changes from duodenitis although pancreatitis is also within the differential. * 2. Nonvisualized gallbladder most likely due to previous cholecystectomy. Please confirm clinically. * 3. Other incidental findings as noted. -Lipase 736-->1001 --> 880 --> 713 -No leukocytosis or clinical signs of infectious process -CRP <0.2; now 2.5 -IV fluids as ordered; d/c once current fluid is complete -Start clear liquid diet by noon and advanced as tolerated with non fatty/ greasy/dairy diet -Abdominal ultrasound report shows mildly dilated CBD at 9mm and small amount of free fluid within the abdomen -Awaiting Dr. Saunders, input Transaminitis, Slightly Worse -Levels up due to inpatient medications -Suspect 2/2 above -AST 214 --> 467 -ALT 91 --> 155 -Alk Phos 136 -IV fluids as ordered; d/c once done -Informed patient have to be careful with pain medications as this could worsen her enzymes and subsequent lead to more pain or discomfort form inflammation Abdominal Pain -2/2 above -Seems to be controlled 4-6 with pain medications -PRN Dilaudid 0.5 mg IVP Q6H and Toradol 30 mg q8H for pain -Informed patient we will work on her pancreas for now and the work with her liver thereafter -She was educated about her pain and pain medications Tobacco use disorder -Reportedly vapes and smokes -Story has been changing on how much she actually consumes -Nicotine patch -Cessation counseling Hypomagnesemia/Hypokalemia -Magnesium 1.6 --> 1.7; Potassium 3.4 -2/2 NPO status -Pharmacy to replete and monitor Resolved: S/p ETOH Abuse -Has reportedly been drinking heavy for past 2 weeks for Insomnia -Dr. Correa has been trying to wean her off clonazepam and she started drinking ETOH instead -Story on how much she drinks has changed multiple times -UDS negative in ED -Ethyl alcohol 0.15 in ED -Multivitamin/Folic acid/Thiamine; pharmacy to switch to oral from IV route -Librium as ordered; will d/c it -Dr. Garnica seen patient and resume her usual Klonopin dose of 2 mg po QHS; again refused substance abuse counselor consult -CIWA protocol; d/c now -PRN Ativan for seizures Chronic: GERD - Pepcid ordered Hx/o bowel obstruction migraines Hx/o bariatric procedure Hx/o Cholecystectomy Hx/o Small bowel resection Plan: She is otherwise clinically stable Switch IV meds to oral Discontinue scheduled Librium and CIWA protocol Start Tramadol 100 mg po Q6H PRN for pain Routine AM labs Other orders as indicated above DVT/PE prophylaxis: SCDs Code status: Full code; PCP: Fawad Palma PA-C Discharge once she is able to tolerate regular meal. Also we will get a hold of her PCP to discuss discharge care plans. I am hoping we could set up a follow up appointment to see him this week possibly or Sunday. She was not happy with her inpatient care and expressed frustration with multiple individuals coming in and out and not explaining things to her. However after talking to her this morning, we were able to address her concerns and complaints and come up with a treatment goal and discharge care plan.
--- NOTE | 2018-12-03 12:11 | PCM.CONSN ---
- General Info Date of Service: 12/03/18 - Patient Data Vitals - Most Recent: Last Vital Signs Temp 98.5 F 12/03/18 08:00 Pulse 91 12/03/18 08:00 Resp 16 12/03/18 08:00 BP 134/75 12/03/18 08:00 Pulse Ox 96 12/03/18 08:00 Weight - Most Recent: 73.482 kg I&O - Last 24 Hours: Intake & Output 12/02/18 12/03/18 12/03/18 23:59 07:59 15:59 Intake Total 2558 2692 Output Total 1600 1050 Balance 958 1642 Lab Results Last 24 Hours: Laboratory Results - last 24 hr 12/02/18 12/02/18 12/02/18 Range/Units 12:26 18:15 18:25 WBC (3.98-10.04) K/mm3 RBC (3.98-5.22) M/mm3 Hgb (11.2-15.7) gm/L Hct (34.1-44.9) % MCV (79.4-94.8) fl MCH (25.6-32.2) pg MCHC (32.2-35.5) g/dl RDW Std Deviation (36.4-46.3) fL Plt Count (182-369) K/mm3 MPV (9.4-12.3) fl Neut % (Auto) (34.0-71.1) % Lymph % (Auto) (19.3-51.7) % [place] % (Auto) (4.7-12.5) % Eos % (Auto) (0.7-5.8) Baso % (Auto) (0.1-1.2) % Neut # (Auto) (1.56-6.13) K/mm3 Lymph # (Auto) (1.18-3.74) K/mm3 [place] # (Auto) (0.24-0.36) K/mm3 Eos # (Auto) (0.04-0.36) K/mm3 Baso # (Auto) (0.01-0.08) K/mm3 Sodium (136-145) mEq/L Potassium (3.5-5.1) mEq/L Chloride (98-107) mEq/L Carbon Dioxide (21-32) mEq/L Anion Gap (5-15) BUN (7-18) mg/dL Creatinine (0.55-1.02) mg/dL Est Cr Clr Drug Dosing mL/min Estimated GFR (MDRD) (>60) mL/min BUN/Creatinine Ratio (14-18) Glucose (74-106) mg/dL POC Glucose 109 H 121 H (70-105) mg/dL Calcium (8.5-10.1) mg/dL Magnesium (1.8-2.4) mg/dl Total Bilirubin (0.2-1.0) mg/dL AST (15-37) U/L ALT (14-59) U/L Alkaline Phosphatase (46-116) U/L C-Reactive Protein (<1.0) mg/dL Total Protein (6.4-8.2) g/dl Albumin (3.4-5.0) g/dl Globulin gm/dL Albumin/Globulin Ratio (1-2) Lipase 880 H (73-393) U/L 12/03/18 12/03/18 12/03/18 Range/Units 00:44 06:10 06:10 WBC 5.17 (3.98-10.04) K/mm3 RBC 3.29 L (3.98-5.22) M/mm3 Hgb 10.1 L (11.2-15.7) gm/L Hct 30.4 L (34.1-44.9) % MCV 92.4 (79.4-94.8) fl MCH 30.7 (25.6-32.2) pg MCHC 33.2 (32.2-35.5) g/dl RDW Std Deviation 50.5 H (36.4-46.3) fL Plt Count 185 (182-369) K/mm3 MPV 8.7 L (9.4-12.3) fl Neut % (Auto) 78.9 H (34.0-71.1) % Lymph % (Auto) 16.4 L (19.3-51.7) % [place] % (Auto) 3.9 L (4.7-12.5) % Eos % (Auto) 0.6 L (0.7-5.8) Baso % (Auto) 0.2 (0.1-1.2) % Neut # (Auto) 4.08 (1.56-6.13) K/mm3 Lymph # (Auto) 0.85 L (1.18-3.74) K/mm3 [place] # (Auto) 0.20 L (0.24-0.36) K/mm3 Eos # (Auto) 0.03 L (0.04-0.36) K/mm3 Baso # (Auto) 0.01 (0.01-0.08) K/mm3 Sodium 137 (136-145) mEq/L Potassium 3.4 L (3.5-5.1) mEq/L Chloride 107 (98-107) mEq/L Carbon Dioxide 22 (21-32) mEq/L Anion Gap 11.4 (5-15) BUN 6 L (7-18) mg/dL Creatinine 0.7 (0.55-1.02) mg/dL Est Cr Clr Drug Dosing 83.01 mL/min Estimated GFR (MDRD) > 60 (>60) mL/min BUN/Creatinine Ratio 8.6 L (14-18) Glucose 119 H (74-106) mg/dL POC Glucose 135 H (70-105) mg/dL Calcium 8.1 L (8.5-10.1) mg/dL Magnesium 1.7 L (1.8-2.4) mg/dl Total Bilirubin 0.9 (0.2-1.0) mg/dL AST 467 H (15-37) U/L ALT 155 H (14-59) U/L Alkaline Phosphatase 381 H (46-116) U/L C-Reactive Protein 2.5 H* (<1.0) mg/dL Total Protein 5.6 L (6.4-8.2) g/dl Albumin 2.7 L (3.4-5.0) g/dl Globulin 2.9 gm/dL Albumin/Globulin Ratio 0.9 L (1-2) Lipase 713 H (73-393) U/L Med Orders - Current: Current Medications Acetaminophen (Tylenol) 650 mg PO Q4H PRN PRN Reason: Pain (Mild 1-3)/fever Clonazepam (Klonopin) 2 mg PO BEDTIME [facility] Last Admin: 12/02/18 20:33 Dose: 2 mg Famotidine (Pepcid) 20 mg PO BID [facility] Folic Acid (Folic Acid) 1 mg PO DAILY [facility] Hydralazine HCl (Apresoline) 20 mg IVPUSH Q4H PRN PRN Reason: Hypertension Hydromorphone HCl (Dilaudid) 0.5 mg IVPUSH Q6H PRN PRN Reason: pain Last Admin: 12/03/18 06:02 Dose: 0.5 mg Dextrose/Sodium Chloride (Dextrose 5%-Normal Saline) 1,000 mls @ 250 mls/hr IV ASDIRECTED [facility] Last Admin: 12/03/18 07:31 Dose: 250 mls/hr Potassium Chloride 10 meq/ (Premix) 100 mls @ 100 mls/hr IV Q1H [facility] Stop: 12/03/18 12:14 Last Admin: 12/03/18 11:40 Dose: 100 mls/hr Ketorolac Tromethamine (Toradol) 30 mg IVPUSH Q8H PRN PRN Reason: Pain (moderate 4-6) Stop: 12/07/18 20:01 Last Admin: 12/03/18 08:19 Dose: 30 mg Loperamide HCl (Imodium) 2 mg PO Q6H PRN PRN Reason: Diarrhea Last Admin: 12/03/18 04:42 Dose: 2 mg Lorazepam (Ativan) 2 mg IVPUSH Q4H PRN PRN Reason: Seizures Lorazepam (Ativan) 0 mg IVPUSH Q4H PRN; Protocol PRN Reason: withdrawl Metoprolol Tartrate (Lopressor) 5 mg IVPUSH Q4H PRN PRN Reason: Tachycardia Miscellaneous Information (Remove Patch) 1 ea TRDERM DAILY [facility] Last Admin: 12/03/18 09:38 Dose: Not Given Multivitamins (Thera) 1 each PO DAILY [facility] Last Admin: 12/03/18 08:29 Dose: 1 each Nicotine (Habitrol) 21 mg TRDERM DAILY [facility] Last Admin: 12/03/18 08:30 Dose: Not Given Ondansetron HCl (Zofran) 4 mg IVPUSH Q6H PRN PRN Reason: Nausea Ondansetron HCl (Zofran Odt) 4 mg PO Q6H PRN PRN Reason: nausea, able to take PO Last Admin: 12/02/18 20:37 Dose: 4 mg Sodium Chloride (Saline Flush) 10 ml FLUSH ASDIRECTED PRN PRN Reason: Keep Vein Open Last Admin: 12/01/18 19:54 Dose: 10 ml Thiamine HCl (Vitamin B-1) 100 mg PO DAILY [facility] Discontinued Medications Chlordiazepoxide HCl (Librium) 25 mg PO ONETIME ONE Stop: 12/01/18 22:31 Last Admin: 12/01/18 23:07 Dose: 25 mg Chlordiazepoxide HCl (Librium) 25 mg PO TID [facility] Last Admin: 12/03/18 08:29 Dose: 25 mg Chlordiazepoxide HCl (Librium) 25 mg PO ONETIME ONE Stop: 12/02/18 10:31 Last Admin: 12/02/18 10:36 Dose: 25 mg Famotidine (Pepcid) 20 mg IVPUSH BID [facility] Last Admin: 12/03/18 08:21 Dose: 20 mg Folic Acid (Folic Acid) 1 mg PO DAILY [facility] Folic Acid (Folic Acid) 1 mg IV DAILY [facility] Last Admin: 12/03/18 08:27 Dose: 1 mg Hydromorphone HCl (Dilaudid) 0.25 mg IVPUSH ONETIME ONE Stop: 12/01/18 19:34 Last Admin: 12/01/18 19:53 Dose: 0.25 mg Hydromorphone HCl (Dilaudid) 0.5 mg IVPUSH ONETIME ONE Stop: 12/01/18 21:20 Last Admin: 12/01/18 21:34 Dose: 0.5 mg Hydromorphone HCl (Dilaudid) 0.5 mg IVPUSH Q4H PRN PRN Reason: pain Last Admin: 12/02/18 12:14 Dose: 0.5 mg Sodium Chloride (Normal Saline) 1,000 mls @ 1,000 mls/hr IV .BOLUS STA Stop: 12/01/18 20:31 Last Admin: 12/01/18 19:53 Dose: 1,000 mls/hr Sodium Chloride (Normal Saline) 1,000 mls @ 150 mls/hr IV ASDIRECTED [facility] Last Admin: 12/01/18 21:35 Dose: 150 mls/hr Sodium Chloride (Normal Saline) 1,000 mls @ 100 mls/hr IV ASDIRECTED [facility] Last Admin: 12/02/18 07:08 Dose: 100 mls/hr Magnesium Sulfate 2 gm/ Premix 50 mls @ 25 mls/hr IV ONETIME ONE Stop: 12/02/18 09:28 Last Admin: 12/02/18 07:57 Dose: 25 mls/hr Thiamine HCl 100 mg/ Sodium (Chloride) 101 mls @ 202 mls/hr IV ONETIME ONE Stop: 12/02/18 09:01 Sodium Chloride (Normal Saline) 1,000 mls @ 250 mls/hr IV ASDIRECTED [facility] Thiamine HCl 100 mg/ Sodium (Chloride) 101 mls @ 202 mls/hr IV DAILY [facility] Magnesium Sulfate 4 gm/ Premix 100 mls @ 25 mls/hr IV ONETIME ONE Stop: 12/03/18 08:08 Last Admin: 12/03/18 08:30 Dose: 25 mls/hr Iopamidol (Isovue-300 (61%)) 100 ml IVPUSH ONETIME ONE Stop: 12/01/18 20:18 Last Admin: 12/01/18 20:24 Dose: 100 ml Lorazepam (Ativan) 1 - 3 mg IVPUSH Q4H PRN; Protocol PRN Reason: Withdrawal Symptoms Ondansetron HCl (Zofran) 4 mg IVPUSH ONETIME ONE Stop: 12/01/18 19:33 Last Admin: 12/01/18 19:54 Dose: 4 mg Ondansetron HCl (Zofran) 4 mg IVPUSH Q4H PRN PRN Reason: Nausea Thiamine HCl (Vitamin B-1) 100 mg PO DAILY [facility] Thiamine HCl (Vitamin B-1) 100 mg IVPUSH ONETIME ONE Stop: 12/02/18 09:01 Last Admin: 12/02/18 08:31 Dose: 100 mg Thiamine HCl (Vitamin B-1) 100 mg IVPUSH DAILY [facility] Last Admin: 12/03/18 08:20 Dose: 100 mg Consult PN Assessment/Plan Procedures: Procedures ASSAY OF FERRITIN (07/24/18) ASSAY OF FOLIC ACID SERUM (06/13/18) BLOOD TRANSFUSION SERVICE (06/13/18) BLOOD TYPING SEROLOGIC ABO (06/13/18) BLOOD TYPING SEROLOGIC RH(D) (06/13/18) C-REACTIVE PROTEIN (06/13/18) COMPATIBILITY TEST ANTIGLOB (06/13/18) COMPLETE CBC W/AUTO DIFF WBC (07/24/18) DXA BONE DENSITY AXIAL (11/11/15) EMERGENCY DEPT VISIT (08/17/18) EMERGENCY DEPT VISIT (04/06/14) METABOLIC PANEL TOTAL CA (06/13/18) MRI ABDOMEN W/O DYE (09/18/14) MRI JNT OF LWR EXTRE W/O DYE (11/30/16) MRI JOINT UPR EXTREM W/O DYE (06/05/18) MRI NECK SPINE W/O DYE (06/05/18) RBC ANTIBODY SCREEN (06/13/18) ROUTINE VENIPUNCTURE (07/24/18) THER/PROPH/DIAG INJ SC/IM (08/17/18) VITAMIN B-12 (06/13/18) X-RAY EXAM KNEE 4 OR MORE (11/13/16) X-RAY EXAM OF LOWER LEG (11/13/16) Problem List Initiated/Reviewed/Updated: Yes Plan: surgical consult dictated LUNA
[2018-12-03] MEDS: traMADol 50 MG Tab PO PRN (17:52)
[2018-12-03] MEDS: ClonazePAM 1 MG Tab PO SCH (20:45)
[2018-12-03] MEDS: Famotidine 20 MG Tab PO SCH (20:46)
[2018-12-04] MEDS: HYDROmorphone 1 MG/ML Syringe IVPUSH PRN ×4 (01:03→20:25)
[2018-12-04] MEDS: Loperamide 2 MG Cap PO PRN ×2 (01:06→08:02)
--- NOTE | 2018-12-04 07:19 | PCM.PN ---
- General Info Date of Service: 12/04/18 Admission Dx/Problem (Free Text): Admission Diagnosis/Problem Admission Diagnosis/Problem Pancreatitis Subjective Update: In to see Britt. She is lying in bed. She reports he pain and other symptoms have improved but she is still having abdominal pain. No other patient concerns. Labs continue to improve. Her diet is being advanced today. Hopeful for discharge tomorrow. Functional Status: Reports: Pain Controlled, Tolerating Diet, Ambulating, Urinating. Denies: New Symptoms - Review of Systems General: Reports: Chills. Denies: Fever, Weakness, Fatigue, Malaise HEENT: Reports: No Symptoms. Denies: Ear Pain, Eye Pain, Headaches, Sore Throat , Visual Changes Pulmonary: Reports: No Symptoms. Denies: Shortness of Breath, Pleuritic Chest Pain, Cough, Sputum, Wheezing Cardiovascular: Reports: No Symptoms. Denies: Chest Pain, Palpitations, Dyspnea on Exertion, Edema, Lightheadedness Gastrointestinal: Reports: Abdominal Pain (RUQ ), Diarrhea (eariler but has since resolved ). Denies: Constipation, Nausea, Vomiting Genitourinary: Reports: No Symptoms. Denies: Pain Musculoskeletal: Reports: No Symptoms Skin: Reports: No Symptoms. Denies: Cyanosis Neurological: Reports: No Symptoms. Denies: Confusion Psychiatric: Reports: No Symptoms - Patient Data Vitals - Most Recent: Last Vital Signs Temp 99.0 F 12/04/18 05:07 Pulse 80 12/04/18 05:07 Resp 16 12/04/18 05:07 BP 132/73 12/04/18 05:07 Pulse Ox 98 12/04/18 05:07 Weight - Most Recent: 159 lb 14.4 oz I&O - Last 24 Hours: Intake & Output 12/03/18 12/04/18 12/04/18 22:59 06:59 14:59 Intake Total 5640 2600 Output Total 1999 1950 Balance 3640 650 Lab Results Last 24 Hours: Laboratory Results - last 24 hr 12/03/18 12/04/18 12/04/18 Range/Units 04:47 05:30 05:30 WBC 5.27 (3.98-10.04) K/mm3 RBC 3.17 L (3.98-5.22) M/mm3 Hgb 9.7 L (11.2-15.7) gm/L Hct 29.9 L (34.1-44.9) % MCV 94.3 (79.4-94.8) fl MCH 30.6 (25.6-32.2) pg MCHC 32.4 (32.2-35.5) g/dl RDW Std Deviation 51.8 H (36.4-46.3) fL Plt Count 161 L (182-369) K/mm3 MPV 9.2 L (9.4-12.3) fl Neut % (Auto) 75.6 H (34.0-71.1) % Lymph % (Auto) 18.2 L (19.3-51.7) % [place] % (Auto) 5.1 (4.7-12.5) % Eos % (Auto) 0.9 (0.7-5.8) Baso % (Auto) 0.0 L (0.1-1.2) % Neut # (Auto) 3.98 (1.56-6.13) K/mm3 Lymph # (Auto) 0.96 L (1.18-3.74) K/mm3 [place] # (Auto) 0.27 (0.24-0.36) K/mm3 Eos # (Auto) 0.05 (0.04-0.36) K/mm3 Baso # (Auto) 0.00 L (0.01-0.08) K/mm3 Sodium 137 (136-145) mEq/L Potassium 3.5 (3.5-5.1) mEq/L Chloride 106 (98-107) mEq/L Carbon Dioxide 23 (21-32) mEq/L Anion Gap 11.5 (5-15) BUN 5 L (7-18) mg/dL Creatinine 0.5 L (0.55-1.02) mg/dL Est Cr Clr Drug Dosing 116.85 mL/min Estimated GFR (MDRD) > 60 (>60) mL/min BUN/Creatinine Ratio 10.0 L (14-18) Glucose 82 (74-106) mg/dL POC Glucose 113 H (70-105) mg/dL Calcium 8.6 (8.5-10.1) mg/dL Magnesium 2.2 (1.8-2.4) mg/dl Total Bilirubin 1.1 H (0.2-1.0) mg/dL AST 185 H (15-37) U/L ALT 142 H (14-59) U/L Alkaline Phosphatase 438 H (46-116) U/L C-Reactive Protein 7.4 H* (<1.0) mg/dL Total Protein 6.0 L (6.4-8.2) g/dl Albumin 2.6 L (3.4-5.0) g/dl Globulin 3.4 gm/dL Albumin/Globulin Ratio 0.8 L (1-2) Lipase 270 (73-393) U/L Med Orders - Current: Current Medications Acetaminophen (Tylenol) 650 mg PO Q4H PRN PRN Reason: Pain (Mild 1-3)/fever Last Admin: 12/03/18 20:45 Dose: 650 mg Clonazepam (Klonopin) 2 mg PO BEDTIME [facility] Last Admin: 12/03/18 20:45 Dose: 2 mg Famotidine (Pepcid) 20 mg PO BID [facility] Last Admin: 12/03/18 20:46 Dose: 20 mg Folic Acid (Folic Acid) 1 mg PO DAILY [facility] Hydralazine HCl (Apresoline) 20 mg IVPUSH Q4H PRN PRN Reason: Hypertension Hydromorphone HCl (Dilaudid) 0.5 mg IVPUSH Q6H PRN PRN Reason: pain Last Admin: 12/04/18 01:03 Dose: 0.5 mg Ketorolac Tromethamine (Toradol) 30 mg IVPUSH Q8H PRN PRN Reason: Pain (moderate 4-6) Stop: 12/07/18 20:01 Last Admin: 12/03/18 20:46 Dose: 30 mg Loperamide HCl (Imodium) 2 mg PO Q6H PRN PRN Reason: Diarrhea Last Admin: 12/04/18 01:06 Dose: 2 mg Lorazepam (Ativan) 2 mg IVPUSH Q4H PRN PRN Reason: Seizures Lorazepam (Ativan) 0 mg IVPUSH Q4H PRN; Protocol PRN Reason: withdrawl Metoprolol Tartrate (Lopressor) 5 mg IVPUSH Q4H PRN PRN Reason: Tachycardia Miscellaneous Information (Remove Patch) 1 ea TRDERM DAILY [facility] Last Admin: 12/03/18 09:38 Dose: Not Given Multivitamins (Thera) 1 each PO DAILY [facility] Last Admin: 12/03/18 08:29 Dose: 1 each Nicotine (Habitrol) 21 mg TRDERM DAILY [facility] Last Admin: 12/03/18 08:30 Dose: Not Given Ondansetron HCl (Zofran) 4 mg IVPUSH Q6H PRN PRN Reason: Nausea Ondansetron HCl (Zofran Odt) 4 mg PO Q6H PRN PRN Reason: nausea, able to take PO Last Admin: 12/02/18 20:37 Dose: 4 mg Sodium Chloride (Saline Flush) 10 ml FLUSH ASDIRECTED PRN PRN Reason: Keep Vein Open Last Admin: 12/01/18 19:54 Dose: 10 ml Thiamine HCl (Vitamin B-1) 100 mg PO DAILY [facility] Tramadol HCl (Ultram) 100 mg PO Q8H PRN PRN Reason: Pain Last Admin: 12/03/18 17:52 Dose: 100 mg Discontinued Medications Chlordiazepoxide HCl (Librium) 25 mg PO ONETIME ONE Stop: 12/01/18 22:31 Last Admin: 12/01/18 23:07 Dose: 25 mg Chlordiazepoxide HCl (Librium) 25 mg PO TID [facility] Last Admin: 12/03/18 08:29 Dose: 25 mg Chlordiazepoxide HCl (Librium) 25 mg PO ONETIME ONE Stop: 12/02/18 10:31 Last Admin: 12/02/18 10:36 Dose: 25 mg Famotidine (Pepcid) 20 mg IVPUSH BID [facility] Last Admin: 12/03/18 08:21 Dose: 20 mg Folic Acid (Folic Acid) 1 mg PO DAILY [facility] Folic Acid (Folic Acid) 1 mg IV DAILY [facility] Last Admin: 12/03/18 08:27 Dose: 1 mg Hydromorphone HCl (Dilaudid) 0.25 mg IVPUSH ONETIME ONE Stop: 12/01/18 19:34 Last Admin: 12/01/18 19:53 Dose: 0.25 mg Hydromorphone HCl (Dilaudid) 0.5 mg IVPUSH ONETIME ONE Stop: 12/01/18 21:20 Last Admin: 12/01/18 21:34 Dose: 0.5 mg Hydromorphone HCl (Dilaudid) 0.5 mg IVPUSH Q4H PRN PRN Reason: pain Last Admin: 12/02/18 12:14 Dose: 0.5 mg Sodium Chloride (Normal Saline) 1,000 mls @ 1,000 mls/hr IV .BOLUS STA Stop: 12/01/18 20:31 Last Admin: 12/01/18 19:53 Dose: 1,000 mls/hr Sodium Chloride (Normal Saline) 1,000 mls @ 150 mls/hr IV ASDIRECTED [facility] Last Admin: 12/01/18 21:35 Dose: 150 mls/hr Sodium Chloride (Normal Saline) 1,000 mls @ 100 mls/hr IV ASDIRECTED [facility] Last Admin: 12/02/18 07:08 Dose: 100 mls/hr Magnesium Sulfate 2 gm/ Premix 50 mls @ 25 mls/hr IV ONETIME ONE Stop: 12/02/18 09:28 Last Admin: 12/02/18 07:57 Dose: 25 mls/hr Thiamine HCl 100 mg/ Sodium (Chloride) 101 mls @ 202 mls/hr IV ONETIME ONE Stop: 12/02/18 09:01 Sodium Chloride (Normal Saline) 1,000 mls @ 250 mls/hr IV ASDIRECTED [facility] Dextrose/Sodium Chloride (Dextrose 5%-Normal Saline) 1,000 mls @ 250 mls/hr IV ASDIRECTED [facility] Last Admin: 12/03/18 07:31 Dose: 250 mls/hr Thiamine HCl 100 mg/ Sodium (Chloride) 101 mls @ 202 mls/hr IV DAILY [facility] Potassium Chloride 10 meq/ (Premix) 100 mls @ 100 mls/hr IV Q1H [facility] Stop: 12/03/18 12:14 Last Admin: 12/03/18 11:40 Dose: 100 mls/hr Magnesium Sulfate 4 gm/ Premix 100 mls @ 25 mls/hr IV ONETIME ONE Stop: 12/03/18 08:08 Last Admin: 12/03/18 08:30 Dose: 25 mls/hr Iopamidol (Isovue-300 (61%)) 100 ml IVPUSH ONETIME ONE Stop: 12/01/18 20:18 Last Admin: 12/01/18 20:24 Dose: 100 ml Lorazepam (Ativan) 1 - 3 mg IVPUSH Q4H PRN; Protocol PRN Reason: Withdrawal Symptoms Ondansetron HCl (Zofran) 4 mg IVPUSH ONETIME ONE Stop: 12/01/18 19:33 Last Admin: 12/01/18 19:54 Dose: 4 mg Ondansetron HCl (Zofran) 4 mg IVPUSH Q4H PRN PRN Reason: Nausea Thiamine HCl (Vitamin B-1) 100 mg PO DAILY [facility] Thiamine HCl (Vitamin B-1) 100 mg IVPUSH ONETIME ONE Stop: 12/02/18 09:01 Last Admin: 12/02/18 08:31 Dose: 100 mg Thiamine HCl (Vitamin B-1) 100 mg IVPUSH DAILY [facility] Last Admin: 12/03/18 08:20 Dose: 100 mg - Exam Quality Assessment: DVT Prophylaxis General: Alert, Oriented, Cooperative, No Acute Distress HEENT: Pupils Equal, Pupils Reactive, EOMI, Mucous Membr. Moist/[place] Neck: Supple, Trachea Midline, No JVD Lungs: Clear to Auscultation, Normal Respiratory Effort Cardiovascular: Regular Rate, Regular Rhythm GI/Abdominal Exam: Normal Bowel Sounds, Soft, Non-Tender, No Organomegaly, No Distention, No Abnormal Bruit, No Mass, Pelvis Stable (Female) Exam: Deferred Back Exam: Normal Inspection, Full Range of Motion Extremities: Normal Inspection, Normal Range of Motion, Non-Tender, No Pedal Edema, Normal Capillary Refill Peripheral Pulses: 2+: Radial (L), Radial (R), Dorsalis Pedis (L), Dorsalis Pedis (R) Skin: Warm, Dry, Intact Neurological: No New Focal Deficit Psy/Mental Status: Alert, Normal Affect, Normal Mood - Problem List & Annotations (1) Pancreatitis SNOMED Code(s): 71670498 Code(s): K85.90 - ACUTE PANCREATITIS WITHOUT NECROSIS OR INFECTION, UNSP Status: Acute Priority: High Current Visit: Yes Qualifiers: Chronicity: acute Pancreatitis type: alcohol induced Acute pancreatitis complication: no infection or necrosis Qualified Code(s): K85.20 - Alcohol induced acute pancreatitis without necrosis or infection (2) Alcohol intoxication SNOMED Code(s): 30551655 Code(s): F10.929 - ALCOHOL USE, UNSPECIFIED WITH INTOXICATION, UNSPECIFIED Status: Acute Priority: High Current Visit: Yes Qualifiers: Complication of substance-induced condition: uncomplicated Qualified Code(s ): F10.920 - Alcohol use, unspecified with intoxication, uncomplicated (3) Elevated liver enzymes SNOMED Code(s): 576810891 Code(s): R74.8 - ABNORMAL LEVELS OF OTHER SERUM ENZYMES Status: Acute Priority: High Current Visit: Yes (4) Tobacco use disorder SNOMED Code(s): 590938719 Code(s): F17.200 - NICOTINE DEPENDENCE, UNSPECIFIED, UNCOMPLICATED Status: Chronic Priority: Medium Current Visit: Yes (5) Hypomagnesemia SNOMED Code(s): 887821842 Code(s): E83.42 - HYPOMAGNESEMIA Status: Acute Priority: High Current Visit: Yes - Problem List Review Problem List Initiated/Reviewed/Updated: Yes - My Orders Last 24 Hours: My Active Orders 12/03/18 09:00 Remove Patch 1 ea TRDERM DAILY 12/05/18 05:11 CBC WITH AUTO DIFF [HEME] AM CMP [COMPREHENSIVE METABOLIC PN,CMP] [CHEM] AM CRP [C-REACTIVE PROTEIN] [CHEM] AM LIPASE [CHEM] AM MAGNESIUM [CHEM] AM 12/06/18 05:11 CBC WITH AUTO DIFF [HEME] AM CMP [COMPREHENSIVE METABOLIC PN,CMP] [CHEM] AM CRP [C-REACTIVE PROTEIN] [CHEM] AM LIPASE [CHEM] AM MAGNESIUM [CHEM] AM - Plan Plan:: I/P: Acute: Pancreatitis, Improving -Has reported worsening abdominal pain, nausea, and vomiting for several days -Hx/o cholecystectomy and gastric bypass -Abdominal/Pelvis CT 12/01/18: * 1. Inflammatory change and fluid around the head of the pancreas and duodenum extending into the right pararenal fascia. Wall thickening is seen within the stomach and duodenum. Findings most likely represent changes from duodenitis although pancreatitis is also within the differential. * 2. Nonvisualized gallbladder most likely due to previous cholecystectomy. Please confirm clinically. * 3. Other incidental findings as noted. -Lipase 736-->1001 --> 880 --> 713-->270 -No leukocytosis or clinical signs of infectious process -CRP <0.2-->2.5-->7.4 (likely elevated 2/2 underlying chronic abdominal issues) -IV fluids as ordered; d/c once current fluid is complete -Start clear liquid diet by noon and advanced as tolerated with non fatty/ greasy/dairy diet -Abdominal ultrasound report shows mildly dilated CBD at 9mm and small amount of free fluid within the abdomen -Dr. Saunders consult - no concerns or recommendations Transaminitis, Stable -Levels up due to inpatient medications -Suspect 2/2 above -AST 214 --> 467-->185 -ALT 91 --> 155-->142 -Alk Phos 136-->381-->438 -IV fluids as ordered; d/c once done -Informed patient have to be careful with pain medications as this could worsen her enzymes and subsequent lead to more pain or discomfort form inflammation Abdominal Pain -2/2 above -Seems to be controlled 4-6 with pain medications -PRN Dilaudid 0.5 mg IVP Q6H and Toradol 30 mg q8H for pain -Informed patient we will work on her pancreas for now and the work with her liver thereafter -She was educated about her pain and pain medications Tobacco use disorder -Reportedly vapes and smokes -Story has been changing on how much she actually consumes -Nicotine patch -Cessation counseling Resolved: S/p ETOH Abuse -Has reportedly been drinking heavy for past 2 weeks for Insomnia -Dr. Correa has been trying to wean her off clonazepam and she started drinking ETOH instead -Story on how much she drinks has changed multiple times -UDS negative in ED -Ethyl alcohol 0.15 in ED -Multivitamin/Folic acid/Thiamine; pharmacy to switch to oral from IV route -Librium as ordered; will d/c it -Dr. Garnica seen patient and resume her usual Klonopin dose of 2 mg po QHS; again refused substance abuse counselor consult -CIWA protocol; d/c now -PRN Ativan for seizures Hypomagnesemia/Hypokalemia -Magnesium 1.6 --> 1.7; Potassium 3.4-->3.5 -2/2 NPO status -Pharmacy to replete and monitor Chronic: GERD - Pepcid ordered Hx/o bowel obstruction migraines Hx/o bariatric procedure Hx/o Cholecystectomy Hx/o Small bowel resection Plan: She is otherwise clinically stable Switch IV meds to oral Discontinue scheduled Librium and CIWA protocol Start Tramadol 100 mg po Q6H PRN for pain Routine AM labs Other orders as indicated above DVT/PE prophylaxis: SCDs Code status: Full code; PCP: Fawad Palma PA-C Discharge once she is able to tolerate regular meal. Also we will get a hold of her PCP to discuss discharge care plans. Hopeful for discharge tomorrow AM. She has appointment with her PCP scheduled tomorrow AM.
--- NOTE | 2018-12-04 07:29 | CONS ---
CONSULTING PHYSICIAN: Saul Saunders MD DATE OF CONSULTATION: 12/03/2018 SURGICAL CONSULTATION HISTORY OF PRESENT ILLNESS: This is a 58-year-old female, who presented to the ER yesterday with abdominal pain, nausea, and vomiting going on for the last few days, getting worse. She was reported to be on clonazepam for many years and this was discontinued and she started drinking alcohol last 2 weeks and came in. Evaluation showed tenderness over the abdomen, the epigastrium, and down around the umbilicus. CT scan demonstrated inflammation of the head of the pancreas and especially around the duodenum suggesting also duodenitis. Lipase was elevated to 800. She was admitted. Ultrasound was done, but did not show gallbladder stones or any evidence of obstruction. Her bilirubin was noted to be in the normal range at 0.9. Liver enzymes were elevated, however. The patient denies having had this before. PAST MEDICAL HISTORY: That of having a ventral hernia, which became infected with mesh and mesh was then removed and repaired and she has had stitch abscesses developing periodically. She now has a small opening wound in that area, but no ventral hernia. PAST SURGICAL HISTORY: Cholecystectomy, small bowel surgery and small bowel resection, and report of hysterectomy. 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 ALLERGIES: To sulfa and antibiotics. REVIEW OF SYSTEMS: No chest pain, shortness of breath, cough, hoarseness, wheezing, fainting, weakness, numbness, or convulsions. PHYSICAL EXAMINATION: GENERAL: Reveals an alert, cooperative female. She is tolerating a diet at this time. EYES: Sclerae white. Extraocular muscle motion normal. ORAL CAVITY: Healthy mucous membrane with mouth and tongue. NECK: Supple. No nodes. No thyromegaly. Trachea midline. LUNGS: Clear. HEART: Heart tones regular rate. ABDOMEN: Mildly tender in the epigastrium and around the umbilicus. A small opening in the incision, chronic wound. EXTREMITIES: Upper and lower extremities; no angulation deformities. No sensorineural deficit. ASSESSMENT: Pancreatitis secondary to alcohol. Gallbladder seems to be absent and the common duct does not show any stones. The duodenitis picture probably is related to her alcohol use. We would not at this time recommend any upper GI studies unless she does not improve. Continue with proton pump inhibitors. Agree with present treatment. MMODAL /[id number]
[2018-12-04] MEDS: Folic Acid 1 MG Tab PO SCH (08:02)
[2018-12-04] MEDS: Thiamine 100 MG Tab PO SCH (08:02)
[2018-12-04] MEDS: Multivitamins,Therapeutic Tab PO SCH (08:02)
[2018-12-04] MEDS: Famotidine 20 MG Tab PO SCH ×2 (08:02→20:31)
[2018-12-04] MEDS: Nicotine 21 MG/24 Hr Patch TRDERM SCH (08:03)
[2018-12-04] MEDS: traMADol 50 MG Tab PO PRN ×2 (08:58→17:09)
[2018-12-04] MEDS ORDERED: Potassium Chloride 20 MEQ Tab.ER PO ONE (11:30)
[2018-12-04] MEDS: ClonazePAM 1 MG Tab PO SCH (20:31)
[2018-12-05] MEDS: traMADol 50 MG Tab PO PRN (01:39)
[2018-12-05] MEDS: HYDROmorphone 1 MG/ML Syringe IVPUSH PRN ×2 (02:45→08:47)
--- NOTE | 2018-12-05 06:32 | PCM.DCSUM1 ---
Discharge Summary - Hospital Course HPI Initial Comments: Britt Mi is a 58 yo female who presented to our ED yesterday evening with abdominal pain, nausea, and vomiting which has been ongoing for the past few days and is getting worse. She has reportedly been on clonazepam for many years and Dr. Correa is trying to wean her off of it. She has not had any for several days as she is out of it. Due to this she has been drinking more and more alcohol over the past 2 weeks. She reports she was last drinking about a hour prior to ED arrival. She has a history of gastric bypass surgery. She is accompanied by her . She denies any fever, chills, cough, congestion, chest pain, or shortness of breath initially. In the ED temperature is 97.6. Pulse 97. Respirations 16. Blood pressure 155/ 98. Pulse ox 98%. She does complain of some moderate mid abdominal tenderness. Labs are obtained: WBC is low at 3.48. Hemogram 13.0. Hematocrit 30.1. She was normocytic. Postsurgical 302,000. Neutrophils are normal at 68.9. Sodium is 134. Potassium 3.8. Chloride 100. Her monoxide 22. Anion gap was slightly high at 15.8. BUN is 14. Creatinine 0.8. EGFR is greater than 60. Glucose is 134. Bilirubin 0.4. AST is elevated at 214, ALT 91, alkaline phosphatase 136. Protein 7.2. Albumin 3.6. Lipase is high at 736. UA is grossly negative. Urine drug screen is negative. Ethyl Alcohol is 0.15. She was started on normal saline and given Dilaudid for pain as well as Zofran for nausea. CT scan of her elbow in the pelvis with contrast was obtained and interpreted by Dr. Peterson as "1. Inflammatory change of fluid around the head of the pancreas and duodenum extending into the right pararenal fascia. Wall thickening seen within the stomach and duodenum. Findings most likely represent change from duodenitis although pancreatitis is also within the differential. 2. Nonvisualized gallbladder most likely due to previous cholecystectomy. Please confirm clinically. Other incidental findings as noted above. She does report some chest pressure while in the ED to the ED provider. EKG is obtained showing no acute changes and a troponin is ordered and is negative. She carries a history of GERD, ulcers, bowel obstruction, migraines, bariatric procedure, cholecystectomy, small bowel resection, hysterectomy. She is a current daily smoker. Her PCP is Fawad Palma PA-C. She is subsequently admitted to the hospital floor on telemetry. Diagnosis: Stroke: No - Discharge Data Discharge Date: 12/05/18 (Admit: Date: 12/01/18) Discharge Disposition: Home, Self-Care 01 Condition: Good - Discharge Diagnosis/Problem(s) (1) Pancreatitis SNOMED Code(s): 69501545 ICD Code: K85.90 - ACUTE PANCREATITIS WITHOUT NECROSIS OR INFECTION, UNSP Status: Resolved Priority: High Current Visit: Yes Qualifiers: Chronicity: acute Pancreatitis type: alcohol induced Acute pancreatitis complication: no infection or necrosis Qualified Code(s): K85.20 - Alcohol induced acute pancreatitis without necrosis or infection (2) Alcohol intoxication SNOMED Code(s): 68283955 ICD Code: F10.929 - ALCOHOL USE, UNSPECIFIED WITH INTOXICATION, UNSPECIFIED Status: Resolved Priority: High Current Visit: Yes Qualifiers: Complication of substance-induced condition: uncomplicated Qualified Code(s ): F10.920 - Alcohol use, unspecified with intoxication, uncomplicated (3) Elevated liver enzymes SNOMED Code(s): 428887792 ICD Code: R74.8 - ABNORMAL LEVELS OF OTHER SERUM ENZYMES Status: Acute Priority: High Current Visit: Yes (4) Tobacco use disorder SNOMED Code(s): 694103490 ICD Code: F17.200 - NICOTINE DEPENDENCE, UNSPECIFIED, UNCOMPLICATED Status : Chronic Priority: Medium Current Visit: Yes (5) Hypomagnesemia SNOMED Code(s): 015173537 ICD Code: E83.42 - HYPOMAGNESEMIA Status: Acute Priority: High Current Visit: Yes - Patient Summary/Data Consults: Consultations 12/02/18 06:42 Consult to Power Plant Superintendent [CONS] Routine Consult to Spiritual Care [CONS] Routine 12/02/18 06:47 Consult to Physician [CONS] Routine 12/02/18 08:57 Consult to Physician [CONS] Routine 12/02/18 10:38 Consult to Case Management/Liquor Runner [CONS] Routine Labs Pending at D/C: None Recommended Follow-up Testing/Procedures: Follow-up with general surgery as needed. Follow-up with PCP at appointment today. Hospital Course: I/P: Acute: Pancreatitis, Improving -Has reported worsening abdominal pain, nausea, and vomiting for several days -Hx/o cholecystectomy and gastric bypass -Abdominal/Pelvis CT 12/01/18: * 1. Inflammatory change and fluid around the head of the pancreas and duodenum extending into the right pararenal fascia. Wall thickening is seen within the stomach and duodenum. Findings most likely represent changes from duodenitis although pancreatitis is also within the differential. * 2. Nonvisualized gallbladder most likely due to previous cholecystectomy. Please confirm clinically. * 3. Other incidental findings as noted. -Lipase 736-->1001 --> 880 --> 713-->270-->185 -No leukocytosis or clinical signs of infectious process -CRP <0.2-->2.5-->7.4 (likely elevated 2/2 underlying chronic abdominal issues) -IV fluids as ordered; d/c once current fluid is complete -Start clear liquid diet by noon and advanced as tolerated with non fatty/ greasy/dairy diet -Abdominal ultrasound report shows mildly dilated CBD at 9mm and small amount of free fluid within the abdomen -Dr. Saunders consult - no concerns or recommendations Transaminitis, Improved -Levels up due to inpatient medications -Suspect 2/2 above -AST 214 --> 467-->185-->44 -ALT 91 --> 155-->142-->87 -Alk Phos 136-->381-->438-->324 -IV fluids as ordered; d/c once done -Informed patient have to be careful with pain medications as this could worsen her enzymes and subsequent lead to more pain or discomfort form inflammation Abdominal Pain -2/2 above -Seems to be controlled 4-6 with pain medications -PRN Dilaudid 0.5 mg IVP Q6H and Toradol 30 mg q8H for pain -Informed patient we will work on her pancreas for now and the work with her liver thereafter -She was educated about her pain and pain medications Tobacco use disorder -Reportedly vapes and smokes -Story has been changing on how much she actually consumes -Nicotine patch -Cessation counseling Resolved: S/p ETOH Abuse -Has reportedly been drinking heavy for past 2 weeks for Insomnia -Dr. Correa has been trying to wean her off clonazepam and she started drinking ETOH instead -Story on how much she drinks has changed multiple times -UDS negative in ED -Ethyl alcohol 0.15 in ED -Multivitamin/Folic acid/Thiamine; pharmacy to switch to oral from IV route -Librium as ordered; will d/c it -Dr. Garnica seen patient and resume her usual Klonopin dose of 2 mg po QHS; again refused substance abuse counselor consult -CIWA protocol; d/c now -PRN Ativan for seizures Hypomagnesemia/Hypokalemia -Magnesium 1.6 --> 1.7; Potassium 3.4-->3.5 -2/2 NPO status -Pharmacy to replete and monitor Chronic: GERD - Pepcid ordered Hx/o bowel obstruction migraines Hx/o bariatric procedure Hx/o Cholecystectomy Hx/o Small bowel resection Plan: She is otherwise clinically stable Switch IV meds to oral Discontinue scheduled Librium and CIWA protocol Start Tramadol 100 mg po Q6H PRN for pain Routine AM labs Other orders as indicated above DVT/PE prophylaxis: SCDs Code status: Full code; PCP: Fawad Palma PA-C Discharge once she is able to tolerate regular meal. Also we will get a hold of her PCP to discuss discharge care plans. Hopeful for discharge tomorrow AM. She has appointment with her PCP scheduled tomorrow AM. Overall Britt did well. She was admitted for pancreatitis 2/2 ETOH use. She she reported that she had been on Clonazepam and her psychiatrist, Dr. Correa had been trying to wean her down. She had been requesting a dose increase up to 2mg. Her TOOL MAINTENANCE TECHNICIAN was pulled and does show a trend of increasing and decreasing Clonazepam dosages. She apparently was taking 2mg at bedtime and not her prescribed dose. She reports Dr. Correa had stopped refilling this and she resorted to ETOH to sleep. She reports she would drink 50 beers a night and often drank the wicked brand apple alcoholic drinks, which are 8% alcohol. Her blood alcohol was 0.15 on admission. She was placed on CIWA protocol and upgraded to ICU status for concerns over an impending detox. She refused to see our addiction counselor but did see tele-psychiatry, Dr. Garnica. He suggested she resume the 2mg dosing q HS and orders were placed. She was complaining of a RUQ abdominal pain while here. Abdomen and pelvic CT showed some possible duodenitis and pancreatits. She was requesting Dilaudid q4hr and refused many of her NSAIDS because they "do not work." She reported feeling better prior to discharge. Dr. Sahu was consulted and had no real suggestions. He has operated on her in the past and is familiar with her as she has had a pretty extensive history of abdominal surgeries. Should symptoms continued we suggested surgical follow-up. Her electrolytes were supplemented. We discussed her smoking status as she reportedly vapes and smokes. She had been refusing patches while here. There was some concern over her possibly vaping in her room however the patient did deny this. She was offered resources to quit smoking. An appointment was made with her PCP, Fawad Palma PA-C for today so she could discharge and then go see him. He was in agreement with our plan of care and discharge plan. The patient was also interested in following up with Dr. Saunders for a colonoscopy. She was discharged today. Home medications were resumed. Her PCP will continue her Klonopin 2mg dosing and no new medications were prescribed. She did see cans vacuum tester and was instructed to avoid ETOH and continue a non-greasy, non-fatty , non-dairy diet. - Patient Instructions Diet: Heart Healthy Diet Diet, Other: Low fat, non-greasy, non-dairy Activity: As Tolerated Showering/Bathing: March Shower Notify Provider of: Fever, Increased Pain, Nausea and/or Vomiting - Discharge Plan *PRESCRIPTION DRUG MONITORING PROGRAM REVIEWED*: Yes *COPY OF PRESCRIPTION DRUG MONITORING REPORT IN PATIENT CLOVER: Yes Home Medications: Home Meds Omeprazole 20 mg PO DAILY 12/02/18 [History] hydrOXYzine pamoate [Hydroxyzine Pamoate] 150 mg PO BEDTIME 12/02/18 [History] Oxygen Therapy Mode: Room Air Patient Handouts: Acute Pancreatitis, Near-nl-Dtxu, Steps to Quit Smoking Referrals: Fawad Palma PA-C [Primary Care Provider] - 12/05/18 10:00 am (Nov at 10:00am ) - Discharge Summary/Plan Comment DC Time >30 min.: No - General Info Date of Service: 12/05/18 Admission Dx/Problem (Free Text: Admission Diagnosis/Problem Admission Diagnosis/Problem Pancreatitis Subjective Update: In to see Britt. She is just getting done with a shower. She reports some abdominal pain but otherwise feels pretty good. She is excited for discharge today. Labs continue to look stable. Functional Status: Reports: Pain Controlled, Tolerating Diet, Ambulating, Urinating. Denies: New Symptoms - Review of Systems General: Reports: No Symptoms. Denies: Fever, Weakness, Fatigue, Malaise, Chills HEENT: Reports: No Symptoms. Denies: Eye Pain, Headaches Pulmonary: Reports: No Symptoms. Denies: Shortness of Breath, Cough, Sputum, Wheezing Cardiovascular: Reports: No Symptoms. Denies: Chest Pain, Palpitations, Dyspnea on Exertion, Edema Gastrointestinal: Reports: Abdominal Pain (right sided upper quadrant ). Denies : Constipation, Diarrhea, Nausea, Vomiting Genitourinary: Reports: No Symptoms. Denies: Pain Musculoskeletal: Reports: No Symptoms Skin: Reports: No Symptoms Neurological: Reports: No Symptoms. Denies: Confusion Psychiatric: Reports: No Symptoms - Patient Data Vitals - Most Recent: Last Vital Signs Temp 99.3 F 12/05/18 02:43 Pulse 86 12/05/18 02:43 Resp 16 12/05/18 02:43 BP 141/67 H 12/05/18 02:43 Pulse Ox 96 12/05/18 02:43 Weight - Most Recent: 156 lb 4.8 oz I&O - Last 24 hours: Intake & Output 12/04/18 12/04/18 12/05/18 14:59 22:59 06:59 Intake Total 1240 1320 Output Total 450 Balance 1240 870 Lab Results - Last 24 hrs: Laboratory Results - last 24 hr 12/04/18 Range/Units 05:30 Sodium 137 (136-145) mEq/L Potassium 3.5 (3.5-5.1) mEq/L Chloride 106 (98-107) mEq/L Carbon Dioxide 23 (21-32) mEq/L Anion Gap 11.5 (5-15) BUN 5 L (7-18) mg/dL Creatinine 0.5 L (0.55-1.02) mg/dL Est Cr Clr Drug Dosing 116.85 mL/min Estimated GFR (MDRD) > 60 (>60) mL/min BUN/Creatinine Ratio 10.0 L (14-18) Glucose 82 (74-106) mg/dL Calcium 8.6 (8.5-10.1) mg/dL Magnesium 2.2 (1.8-2.4) mg/dl Total Bilirubin 1.1 H (0.2-1.0) mg/dL AST 185 H (15-37) U/L ALT 142 H (14-59) U/L Alkaline Phosphatase 438 H (46-116) U/L C-Reactive Protein 7.4 H* (<1.0) mg/dL Total Protein 6.0 L (6.4-8.2) g/dl Albumin 2.6 L (3.4-5.0) g/dl Globulin 3.4 gm/dL Albumin/Globulin Ratio 0.8 L (1-2) Lipase 270 (73-393) U/L Med Orders - Current: Current Medications Acetaminophen (Tylenol) 650 mg PO Q4H PRN PRN Reason: Pain (Mild 1-3)/fever Last Admin: 12/03/18 20:45 Dose: 650 mg Clonazepam (Klonopin) 2 mg PO BEDTIME [facility] Last Admin: 12/04/18 20:31 Dose: 2 mg Famotidine (Pepcid) 20 mg PO BID [facility] Last Admin: 12/04/18 20:31 Dose: 20 mg Folic Acid (Folic Acid) 1 mg PO DAILY [facility] Last Admin: 12/04/18 08:02 Dose: 1 mg Hydralazine HCl (Apresoline) 20 mg IVPUSH Q4H PRN PRN Reason: Hypertension Hydromorphone HCl (Dilaudid) 0.5 mg IVPUSH Q6H PRN PRN Reason: pain Last Admin: 12/05/18 02:45 Dose: 0.5 mg Ketorolac Tromethamine (Toradol) 30 mg IVPUSH Q8H PRN PRN Reason: Pain (moderate 4-6) Stop: 12/07/18 20:01 Last Admin: 12/03/18 20:46 Dose: 30 mg Loperamide HCl (Imodium) 2 mg PO Q6H PRN PRN Reason: Diarrhea Last Admin: 12/04/18 08:02 Dose: 2 mg Lorazepam (Ativan) 2 mg IVPUSH Q4H PRN PRN Reason: Seizures Lorazepam (Ativan) 0 mg IVPUSH Q4H PRN; Protocol PRN Reason: withdrawl Magnesium Sulfate (Pharmacy To Dose - Magnesium Replacement) 0 dose .XX DAILY PRN PRN Reason: RX TO WATCH MAG Metoprolol Tartrate (Lopressor) 5 mg IVPUSH Q4H PRN PRN Reason: Tachycardia Miscellaneous Information (Remove Patch) 1 ea TRDERM DAILY [facility] Last Admin: 12/04/18 08:04 Dose: Not Given Multivitamins (Thera) 1 each PO DAILY [facility] Last Admin: 12/04/18 08:02 Dose: 1 each Nicotine (Habitrol) 21 mg TRDERM DAILY [facility] Last Admin: 12/04/18 08:03 Dose: Not Given Ondansetron HCl (Zofran) 4 mg IVPUSH Q6H PRN PRN Reason: Nausea Ondansetron HCl (Zofran Odt) 4 mg PO Q6H PRN PRN Reason: nausea, able to take PO Last Admin: 12/02/18 20:37 Dose: 4 mg Potassium Chloride (Pharmacy To Dose - Potassium Replacement) 0 dose .XX DAILY PRN PRN Reason: RX TO WATCH K Sodium Chloride (Saline Flush) 10 ml FLUSH ASDIRECTED PRN PRN Reason: Keep Vein Open Last Admin: 12/01/18 19:54 Dose: 10 ml Thiamine HCl (Vitamin B-1) 100 mg PO DAILY [facility] Last Admin: 12/04/18 08:02 Dose: 100 mg Tramadol HCl (Ultram) 100 mg PO Q8H PRN PRN Reason: Pain Last Admin: 12/05/18 01:39 Dose: 100 mg Discontinued Medications Chlordiazepoxide HCl (Librium) 25 mg PO ONETIME ONE Stop: 12/01/18 22:31 Last Admin: 12/01/18 23:07 Dose: 25 mg Chlordiazepoxide HCl (Librium) 25 mg PO TID [facility] Last Admin: 12/03/18 08:29 Dose: 25 mg Chlordiazepoxide HCl (Librium) 25 mg PO ONETIME ONE Stop: 12/02/18 10:31 Last Admin: 12/02/18 10:36 Dose: 25 mg Famotidine (Pepcid) 20 mg IVPUSH BID [facility] Last Admin: 12/03/18 08:21 Dose: 20 mg Folic Acid (Folic Acid) 1 mg PO DAILY [facility] Folic Acid (Folic Acid) 1 mg IV DAILY [facility] Last Admin: 12/03/18 08:27 Dose: 1 mg Hydromorphone HCl (Dilaudid) 0.25 mg IVPUSH ONETIME ONE Stop: 12/01/18 19:34 Last Admin: 12/01/18 19:53 Dose: 0.25 mg Hydromorphone HCl (Dilaudid) 0.5 mg IVPUSH ONETIME ONE Stop: 12/01/18 21:20 Last Admin: 12/01/18 21:34 Dose: 0.5 mg Hydromorphone HCl (Dilaudid) 0.5 mg IVPUSH Q4H PRN PRN Reason: pain Last Admin: 12/02/18 12:14 Dose: 0.5 mg Sodium Chloride (Normal Saline) 1,000 mls @ 1,000 mls/hr IV .BOLUS STA Stop: 12/01/18 20:31 Last Admin: 12/01/18 19:53 Dose: 1,000 mls/hr Sodium Chloride (Normal Saline) 1,000 mls @ 150 mls/hr IV ASDIRECTED [facility] Last Admin: 12/01/18 21:35 Dose: 150 mls/hr Sodium Chloride (Normal Saline) 1,000 mls @ 100 mls/hr IV ASDIRECTED [facility] Last Admin: 12/02/18 07:08 Dose: 100 mls/hr Magnesium Sulfate 2 gm/ Premix 50 mls @ 25 mls/hr IV ONETIME ONE Stop: 12/02/18 09:28 Last Admin: 12/02/18 07:57 Dose: 25 mls/hr Thiamine HCl 100 mg/ Sodium (Chloride) 101 mls @ 202 mls/hr IV ONETIME ONE Stop: 12/02/18 09:01 Sodium Chloride (Normal Saline) 1,000 mls @ 250 mls/hr IV ASDIRECTED YANELY Dextrose/Sodium Chloride (Dextrose 5%-Normal Saline) 1,000 mls @ 250 mls/hr IV ASDIRECTED [facility] Last Admin: 12/03/18 07:31 Dose: 250 mls/hr Thiamine HCl 100 mg/ Sodium (Chloride) 101 mls @ 202 mls/hr IV DAILY [facility] Potassium Chloride 10 meq/ (Premix) 100 mls @ 100 mls/hr IV Q1H [facility]ANELY Stop: 12/03/18 12:14 Last Admin: 12/03/18 11:40 Dose: 100 mls/hr Magnesium Sulfate 4 gm/ Premix 100 mls @ 25 mls/hr IV ONETIME ONE Stop: 12/03/18 08:08 Last Admin: 12/03/18 08:30 Dose: 25 mls/hr Iopamidol (Isovue-300 (61%)) 100 ml IVPUSH ONETIME ONE Stop: 12/01/18 20:18 Last Admin: 12/01/18 20:24 Dose: 100 ml Lorazepam (Ativan) 1 - 3 mg IVPUSH Q4H PRN; Protocol PRN Reason: Withdrawal Symptoms Ondansetron HCl (Zofran) 4 mg IVPUSH ONETIME ONE Stop: 12/01/18 19:33 Last Admin: 12/01/18 19:54 Dose: 4 mg Ondansetron HCl (Zofran) 4 mg IVPUSH Q4H PRN PRN Reason: Nausea Potassium Chloride (Klor-Con M20) 20 meq PO ONETIME ONE Stop: 12/04/18 11:31 Last Admin: 12/04/18 11:34 Dose: 20 meq Thiamine HCl (Vitamin B-1) 100 mg PO DAILY [facility] Thiamine HCl (Vitamin B-1) 100 mg IVPUSH ONETIME ONE Stop: 12/02/18 09:01 Last Admin: 12/02/18 08:31 Dose: 100 mg Thiamine HCl (Vitamin B-1) 100 mg IVPUSH DAILY [facility] Last Admin: 12/03/18 08:20 Dose: 100 mg - Exam Quality Assessment: Reports: DVT Prophylaxis General: Reports: Alert, Oriented, Cooperative, No Acute Distress HEENT: Reports: Pupils Equal, Pupils Reactive, EOMI, Mucous Membr. Moist/[place] Neck: Reports: Supple, Trachea Midline, No JVD Lungs: Reports: Clear to Auscultation, Normal Respiratory Effort Cardiovascular: Reports: Regular Rate, Regular Rhythm GI/Abdominal Exam: Normal Bowel Sounds, Soft, No Distention, No Abnormal Bruit, Tender (RUQ pain - improving per patient ) (Female) Exam: Deferred Rectal (Female) Exam: Deferred Back Exam: Reports: Normal Inspection, Full Range of Motion Extremities: Normal Inspection, Normal Range of Motion, Non-Tender, No Pedal Edema, Normal Capillary Refill Skin: Reports: Warm, Dry, Intact Neurological: Reports: No New Focal Deficit Psy/Mental Status: Reports: Alert
[2018-12-05] MEDS: Thiamine 100 MG Tab PO SCH (08:48)
[2018-12-05] MEDS: Famotidine 20 MG Tab PO SCH (08:49)
[2018-12-05] MEDS: Multivitamins,Therapeutic Tab PO SCH (08:49)
[2018-12-05] MEDS: Folic Acid 1 MG Tab PO SCH (08:49)
[2018-12-05] MEDS: Nicotine 21 MG/24 Hr Patch TRDERM SCH (08:56)
[2018-12-05 10:26] VITALS: BP 129/78
== END 2018-12-05 09:45 | disposition home or self-care (01) | DRG 282 ==
LOC: JD.ED 18:54 → JD.MS 20:29 → JD.ICU 12-02 09:13 → JD.MS 12-03 17:18
PROVIDERS: ADMIT Internal Medicine Cardiovascular Disease; ATTEND Internal Medicine Cardiovascular Disease
DX: K85.20 Alcohol induced acute pancreatitis without necrosis or infection (principal); E83.42 Hypomagnesemia; K21.9 Gastro-esophageal reflux disease without esophagitis; G43.909 Migraine, unspecified, not intractable, without status migrainosus; F10.129 Alcohol abuse with intoxication, unspecified; F17.200 Nicotine dependence, unspecified, uncomplicated; R74.0 Nonspecific elevation of levels of transaminase and lactic acid dehydrogenase [LDH]; G47.00 Insomnia, unspecified; E87.6 Hypokalemia; F41.9 Anxiety disorder, unspecified; F17.210 Nicotine dependence, cigarettes, uncomplicated; F17.290 Nicotine dependence, other tobacco product, uncomplicated; Z98.84 Bariatric surgery status; Z90.49 Acquired absence of other specified parts of digestive tract; Z79.899 Other long term (current) drug therapy; Z88.2 Allergy status to sulfonamides; Z88.8 Allergy status to other drugs, medicaments and biological substances; Z87.11 Personal history of peptic ulcer disease; Z88.1 Allergy status to other antibiotic agents; Z90.710 Acquired absence of both cervix and uterus
CPT/HCPCS: 36415; 74177; 74177-26; 76705; 76705-26; 80048; 80053; 80306; 81001; 82962; 83690; 83735; 84484; 85025; 86140; 93005; 96361; 96374; 96375; 96376; 99285-25; A9270-GY; G0480; J1170; J1885; J2405; J3411; J3475; J3480; J3490; J7040; J7042; Q9967